=== PATIENT | male | born 1980 | race Caucasian/White ===

== ENCOUNTER → 2017-08-07 | Outpatient (REF) | payer OTHER ==
[2017-08-07 19:51] LABS: BASO # 0.1 10^3/uL (0.0-0.2); BASO % 0.5 % (0.0-1.0); EOS # 0.3 10^3/uL (0.0-0.50); EOS % 2.6 % (0.0-3.0); HEMATOCRIT 45.3 % (42.0-52.0); HEMOGLOBIN 14.8 g/dl (14.0-18.0); IMMATURE GRANULOCYTE % 0.4 % (0-3.0); LYMPH # 2.1 10^3/uL (1.5-4.5); LYMPH % 19.8 % (24.0-44.0); MEAN CORPUSCULAR HEMOGLOBIN 28.2 pg (27.0-33.0); MEAN CORPUSCULAR HGB CONC 32.7 g/dl (32.0-36.5); MEAN CORPUSCULAR VOLUME 86.5 fl (80.0-96.0); MONO # 0.8 10^3/uL (0.0-0.8); MONO % 7.7 % (0.0-5.0); NEUTROPHILS # 7.3 10^3/uL (1.8-7.7); PLATELET COUNT, AUTOMATED 295 10^3/uL (150-450); RED BLOOD COUNT 5.24 10^6/uL (4.30-6.10); RED CELL DISTRIBUTION WIDTH 13.4 % (11.5-14.5); WHITE BLOOD COUNT 10.6 10^3/uL (4.0-10.0)
[2017-08-07 20:30] LABS: ALBUMIN 4.1 GM/DL (3.2-5.2); ALBUMIN/GLOBULIN RATIO 1.11 (1.00-1.93); ALKALINE PHOSPHATASE 94 U/L (45-117); ALT/SGPT 86 U/L (12-78); ANION GAP 11 MEQ/L (8-16); AST/SGOT 45 U/L (7-37); BILIRUBIN,TOTAL 0.5 MG/DL (0.2-1.0); BLOOD UREA NITROGEN 15 MG/DL (7-18); CALCIUM LEVEL 9.1 MG/DL (8.5-10.1); CARBON DIOXIDE LEVEL 31 MEQ/L (21-32); CHLORIDE LEVEL 100 MEQ/L (98-107); CHOLESTEROL LEVEL 157 MG/DL (<200); CHOLESTEROL RISK RATIO 3.829 (<5); CREATININE FOR GFR 0.92 MG/DL (0.70-1.30); FREE T4 0.99 NG/DL (0.76-1.46); GLOMERULAR FILTRATION RATE > 60.0 (>60); GLUCOSE, FASTING 71 MG/DL (70-100); HDL CHOLESTEROL 41 MG/DL (>40); LDL CHOLESTEROL 78.2 MG/DL (<100); NON-HDL-C 116 MG/DL; POTASSIUM SERUM 3.8 MEQ/L (3.5-5.1); SODIUM LEVEL 142 MEQ/L (136-145); TOTAL PROTEIN 7.8 GM/DL (6.4-8.2); TRIGLYCERIDES LEVEL 189 MG/DL (<150)
== END ==
LOC: M LAB REF 19:38 → M LABDRWAD 19:38
DX: I10 Essential (primary) hypertension (principal); E03.9 Hypothyroidism, unspecified
CPT/HCPCS: 84443

== ENCOUNTER 2017-12-04 19:03 | Emergency (ER) | payer OTHER ==
[2017-12-04] MEDS: BACTRIM 160MG/800MG DS TAB PO (22:48)
== END 2017-12-04 23:00 | disposition home or self-care (01) ==
LOC: M ED 19:03
DX: K65.1 Peritoneal abscess (principal); E03.9 Hypothyroidism, unspecified; Z87.891 Personal history of nicotine dependence; Z91.040 Latex allergy status; Z88.0 Allergy status to penicillin; Z79.899 Other long term (current) drug therapy; Z79.890 Hormone replacement therapy
CPT/HCPCS: 99283

== ENCOUNTER 2019-12-26 08:09 | Emergency (ER) | payer OTHER ==
[~2019-12-26] VITALS: Ht 193 cm; Wt 172.7 kg
[~2019-12-26 08:09] MED LIST: BACT800T5 PO; CLON0.2T; LEVO150T7; blood pressure PO
[2019-12-26] MEDS ORDERED: LISI10TA4 PO ×2 (08:29→12:07)
[2019-12-26] MEDS ORDERED: NS 1,000 ML IV ONE (08:30)
[2019-12-26 08:57] LABS: BASO % 0.3 % (0.0-1.0); EOS # 0.1 10^3/uL (0.0-0.5); EOS % 0.8 % (0.0-3.0); HEMATOCRIT 44.9 % (42.0-52.0); HEMOGLOBIN 14.3 g/dl (13.5-17.5); LYMPH # 1.5 10^3/uL (1.5-5.0); LYMPH % 12.7 % (24.0-44.0); MEAN CORPUSCULAR HEMOGLOBIN 26.9 pg (27.0-33.0); MEAN CORPUSCULAR HGB CONC 31.8 g/dl (32.0-36.5); MEAN CORPUSCULAR VOLUME 84.4 fl (80.0-96.0); MONO # 0.7 10^3/uL (0.0-0.8); MONO % 5.6 % (0.0-5.0); NEUTROPHILS # 9.4 10^3/uL (1.5-8.5); NEUTROPHILS % 80.1 % (36.0-66.0); PLATELET COUNT, AUTOMATED 287 10^3/uL (150-450); RED BLOOD COUNT 5.32 10^6/uL (4.30-6.10); WHITE BLOOD COUNT 11.7 10^3/uL (4.0-10.0)
[2019-12-26 09:24] LABS: INR 1.07; PROTHROMBIN TIME 13.6 SECONDS (11.8-14.0)
[2019-12-26 09:28] LABS: ALBUMIN 3.8 GM/DL (3.2-5.2); BILIRUBIN,DIRECT 0.2 MG/DL (0.0-0.2); BILIRUBIN,TOTAL 0.8 MG/DL (0.2-1.0); THYROID STIMULATING HORMONE 14.3 uIU/ML (0.358-3.740); THYROXINE (T4) 7.5 UG/DL (4.5-12.0); TOTAL PROTEIN 7.5 GM/DL (6.4-8.2)
--- NOTE | 2019-12-26 09:42 | REP ---
CHEST, SINGLE VIEW: There is no evidence of acute infiltrate. No pleural effusion is seen. The heart is normal in size. The mediastinal silhouette is unremarkable. The visualized osseous structures are intact. IMPRESSION: No acute pulmonary disease. Electronically Signed by Blair Ohara MD 12/26/2019 11:28 A
[2019-12-26 12:01] VITALS: BP 149/100
[2019-12-26] MEDS ORDERED: CYCL-707 PO (12:07)
--- NOTE | 2019-12-27 07:57 | ECGEPIP ---
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
== END 2019-12-26 12:20 | disposition home or self-care (01) ==
LOC: EDBD 08:09 → M ED 08:09
DX: I95.1 Orthostatic hypotension (principal); F17.200 Nicotine dependence, unspecified, uncomplicated; I10 Essential (primary) hypertension; R00.0 Tachycardia, unspecified; Z79.899 Other long term (current) drug therapy; Z88.0 Allergy status to penicillin; Z91.040 Latex allergy status

== ENCOUNTER 2019-12-31 11:15 | Emergency (ER) | payer OTHER ==
[~2019-12-31] VITALS: Ht 193 cm; Wt 172.7 kg
[~2019-12-31 11:15] MED LIST changes: +CYCL-707 PO; +LISI10TA4 PO
[2019-12-31] MEDS ORDERED: BACT800T5 PO (12:17)
[2019-12-31] MEDS ORDERED: IBUP-1022 PO (12:17)
[2019-12-31 13:15] VITALS: BP 139/79
== END 2019-12-31 13:28 | disposition home or self-care (01) ==
LOC: M ED 11:15 → EDBD 11:15 → M ED 13:28
DX: L02.214 Cutaneous abscess of groin (principal); E11.9 Type 2 diabetes mellitus without complications; I10 Essential (primary) hypertension; Z79.899 Other long term (current) drug therapy; Z87.891 Personal history of nicotine dependence; Z88.0 Allergy status to penicillin; Z91.040 Latex allergy status

== ENCOUNTER 2021-03-27 16:48 | Inpatient (IN) | payer OTHER ==
[~2021-03-27] VITALS: Ht 193 cm; Wt 227.3 kg
[~2021-03-27 16:48] MED LIST changes: +IBUP-1022 PO; +LISI10TA22 PO; -LISI10TA4 PO
[2021-03-27 21:10] LABS: HEMATOCRIT 44.1 % (42.0-52.0); HEMOGLOBIN 14.3 g/dl (13.5-17.5); MEAN CORPUSCULAR HEMOGLOBIN 29.1 pg (27.0-33.0); MEAN CORPUSCULAR HGB CONC 32.4 g/dl (32.0-36.5); MEAN CORPUSCULAR VOLUME 89.8 fl (80.0-96.0); PLATELET COUNT, AUTOMATED 268 10^3/uL (150-450); RED BLOOD COUNT 4.91 10^6/uL (4.30-6.10); WHITE BLOOD COUNT 12.3 10^3/uL (4.0-10.0)
[2021-03-27 21:51] LABS: AMPHETAMINES LEVEL URINE NEGATIVE (NEGATIVE); BARBITURATES URINE NEGATIVE (NEGATIVE); BENZODIAZEPINES URINE NEGATIVE (NEGATIVE); CANNABINOIDS URINE POSITIVE (NEGATIVE); COCAINE METABOLITE URINE NEGATIVE (NEGATIVE); METHADONE URINE NEGATIVE (NEGATIVE); OPIATES URINE NEGATIVE (NEGATIVE); PHENCYCLIDINE URINE NEGATIVE (NEGATIVE)
[2021-03-27 21:58] LABS: ACETAMINOPHEN LEVEL < 2.0 UG/ML (10.0-30.0); ALBUMIN 3.4 GM/DL (3.2-5.2); ALT/SGPT 37 U/L (12-78); BILIRUBIN,DIRECT 0.1 MG/DL (0.0-0.2); BILIRUBIN,TOTAL 0.5 MG/DL (0.2-1.0); BLOOD UREA NITROGEN 20 MG/DL (7-18); CALCIUM LEVEL 8.9 MG/DL (8.5-10.1); CARBON DIOXIDE LEVEL 29 MEQ/L (21-32); CHLORIDE LEVEL 105 MEQ/L (98-107); CREATININE FOR GFR 1.11 MG/DL (0.70-1.30); ETHYL ALCOHOL (ETHANOL) < 0.003 % (0.000-0.010); GLOMERULAR FILTRATION RATE > 60.0 (>60); GLUCOSE, FASTING 126 MG/DL (70-100); POTASSIUM SERUM 4.3 MEQ/L (3.5-5.1); SALICYLATE LEVEL < 1.7 MG/DL (5.0-30.0); SODIUM LEVEL 137 MEQ/L (136-145)
[2021-03-28] MEDS: APIXABAN 5 MG TAB (ELIQUIS) PO SCH ×3 (01:47→19:56)
[2021-03-28] MEDS ORDERED: TRAZ-189 PO (08:33)
[2021-03-28] MEDS ORDERED: LEVOTAB10 PO (08:33)
[2021-03-28] MEDS ORDERED: AMLO1TAB24 PO (08:33)
[2021-03-28] MEDS ORDERED: METF500T13 PO (08:33)
[2021-03-28] MEDS ORDERED: ARIP1TAB6 PO (08:33)
[2021-03-28] MEDS ORDERED: LEVO100T5 PO (08:33)
[2021-03-28] MEDS ORDERED: VITA100066 PO (08:33)
[2021-03-28] MEDS ORDERED: METO50TA7 PO (08:33)
[2021-03-28] MEDS ORDERED: TORS20TA2 PO (08:33)
[2021-03-28] MEDS ORDERED: ELIQ5TAB PO (08:33)
[2021-03-28] MEDS ORDERED: OMEP-218 PO (08:33)
[2021-03-28] MEDS ORDERED: MELA10CA2 PO (08:33)
[2021-03-28] MEDS ORDERED: MAGN400T2 PO (08:33)
[2021-03-28] MEDS ORDERED: traZODone 100 MG TAB PO PRN (08:50)
[2021-03-28] MEDS ORDERED: SIME80CH5 PO (10:25)
[2021-03-28] MEDS ORDERED: [UNRECOGNIZED DRUG - CODE] MT (10:25)
[2021-03-28] MEDS ORDERED: CETI-24 PO (10:25)
[2021-03-28] MEDS ORDERED: HOME MED LIST COMPLETE! XX SCH (10:30)
[2021-03-28 11:12] LABS: RSV AMPLIFICATION NEGATIVE (NEGATIVE)
[2021-03-28] MEDS ORDERED: MOM 30ML SUSPENSION UDC PO PRN (15:10)
[2021-03-28] MEDS ORDERED: ACETAMINOPHEN TAB 650MG DOSE (2X325MG) PO PRN (15:10)
[2021-03-28] MEDS ORDERED: MAALOX 30 ML SUSP *UDC PO PRN (15:10)
[2021-03-28] MEDS ORDERED: traZODone 50 MG TAB PO PRN ×2 (15:10→18:05)
--- NOTE | 2021-03-28 19:38 | ECGEPIP ---
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
[2021-03-28] MEDS: OMEPRAZOLE 20 MG CAP PO SCH (19:56)
[2021-03-28] MEDS: metFORMIN (GLUCOPHAGE) 500MG TAB PO SCH (19:57)
[2021-03-28] MEDS: METOPROLOL TARTRATE 100 MG TAB PO SCH (20:43)
[2021-03-28] MEDS: TORSEMIDE 20 MG TAB PO SCH (20:43)
[2021-03-28] MEDS ORDERED: ARIPiprazole 10 MG TAB PO SCH (21:00)
[2021-03-29] MEDS ORDERED: LEVOTHYROXINE 100MCG TABLET (0.1MG) PO SCH ×2 (06:00)
[2021-03-29 06:20] VITALS: BP 156/102
[2021-03-29 09:00] VITALS: BP 130/77
[2021-03-29] MEDS: METOPROLOL TARTRATE 100 MG TAB PO SCH (09:00)
[2021-03-29] MEDS ORDERED: VITAMIN D 1,000 INTERNATIONAL UNITS TABLET PO SCH (09:00)
[2021-03-29] MEDS ORDERED: CETIRIZINE (ZyrTEC) 10 MG TAB PO SCH (09:00)
[2021-03-29] MEDS: metFORMIN (GLUCOPHAGE) 500MG TAB PO SCH (09:51)
[2021-03-29] MEDS: APIXABAN 5 MG TAB (ELIQUIS) PO SCH (09:51)
[2021-03-29] MEDS: TORSEMIDE 20 MG TAB PO SCH (09:51)
[2021-03-29] MEDS: OMEPRAZOLE 20 MG CAP PO SCH (09:51)
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
[2021-03-29] MEDS ORDERED: NICO14DI6 TOP (13:22)
--- NOTE | 2021-03-29 13:23 | MHDSPDOC ---
[facility] Discharge Summary Discharge Summary DATE OF ADMISSION: Mar 28, 2021 at 15:08 DATE OF DISCHARGE: Mar 29, 2021 at 12:48 Discharge diagnoses: Unspecified depressive disorder Adjustment disorder Cannabis use disorder Tobacco use disorder Homelessness Multiple medical comorbidities, continued on home medications Reason for admission:Patient is a 40 -year-old , male, who was recently discharged 2 days ago from [facility] in [place], was treated with Abilify (5 mg x 2, 10 mg), trazodone 100 mg nightly for mood lability due to superficial cut reported suicide attempt, despite this states he has not been suicidal or had suicide attempts in years, reports history of anxiety, panic attacks, depression with psychotic features, was sent to [facility] but they could not make an appoint with him until today, 03/29/21 at 1 PM. Patient states she called 911 because he was homeless and has nowhere to stay so called 911 and was brought to ED 2 days ago, reports chronic passive suicidal thoughts which are vague, but clearly denies any intent or plans, states "I would never hurt myself, just did not know what t o do when I was out there homeless". Has medications with refills which was confirmed with his pharmacy, states he does not want to remain on a voluntary admission status. He is agreeable to discharge today to [facility] which he plans to go to, also plans to follow-up with outpatient providers Vital signs: See below Consultants involved: See medical H&P by hospitalist Treatment and progress on the unit: Patient was admitted to the [facility] 9.39 legal status and was afforded the following treatment modalities: 1. Individual therapy 2. Group therapy 3. Medication management 4. Milieu therapy 5. Safe environment Hospital course: Patient was admitted to the [facility] on a 9.39 legal status. Was medically cleared prior to coming up to the [facility]. TSH was elevated at 10,000 in the ED, patient was started on home medications for hypertension, hypothyroidism, patient found medications beneficial and tolerated them well. Was evaluated for medical conditions, denied any acute physical complaints. Patient was calm, denied any psychotic symptoms or mood symptoms, was goal oriented and want to go to [facility] to find housing which was the precipitating factor for his worsening mood, denies mood, anxiety and intrusive thoughts. Education provided regarding cannabis use and risk for anxiety, depression, psychotic symptoms, effects and overall health given medical conditions. Today patient denied depression, anxiety, insomnia, suicidal or homicidal ideations intent or plan, hallucinations, delusions. Patient was discharged to [facility] with follow-up. Patient felt safe for discharge. Was offered continued stay on voluntary admission but refused. Discharge assessment: On today's interview patient is alert and oriented, dressed appropriately. Hygiene and grooming is well-kept. Smiles on approach and is pleasant and engaged on interview. Denies depression and anxiety. Denies suicidal homicidal ideation, intent or planning. Denies and is not observed with gabrielle or psychotic symptoms of delusions, hallucinations, bizarre thinking, obsessions, paranoia, ruminations, illogical thoughts, flight of ideas or having poor insight or judgment. Patient has normal mentation, declines further hospitalization of voluntary status and meets criteria for discharge today, patient encouraged to return the hospital if symptoms worsen or change and encouraged to call unit if he feels he has questions needed to be answered or help with medications or care. Mental status: General Appearance: well groomed Build: overweight Demeanor: average Eye Contact: average Activity: average Behavior: cooperative Speech: clear, spontaneous, normal volume Mood: euthymic Mood "good" Affect: full, appropriate, congruent Thought Process: logical/linear Thought Content (Delusions): none reported Thought Content (Other): Denies suicidal ideation, intent or plan Thought Content (Aggressive): Denies homicidal ideation, intent or plan Perception (Hallucinations): none reported, no hallucinations or paranoia Perception (Other): none reported Cognition (Impairment of): none reported Cognition(Intelligence Est.): average Oriented: Awake, Alert, Oriented times three Insight: good Judgment: Good Psychosis: Denies Medications on discharge: -see medication reconciliation, has fill of Abilify 5 x 2 mg nightly and is aware that is available at the pharmacy was confirmed with pharmacy: CSSRS on discharge: Wish to be : No nonspecific active suicidal thoughts: No lifetime attempts: at least 3 interrupted attempts: 0 aborted attempts: 0 preparatory acts or behavior: None Taking into consideration safety state, status, modifiable, non-modifiable risk factors patient is at low risk on discharge for suicide according to [facility] suicide evaluation. PLAN/FOLLOWUP ARRANGEMENTS: Follow Up Care Education Label * Medical * Medical Follow Up [facility] * Established With This Provider No * Therapist * Date Apr 18, 2021 * Time 10:00 * Address of Clinic or Practice [address] [place] [address] * Follow Up Care Education Label * Mental Health Appt 1 * Established With This Provider Yes * Therapist GABRIELA * Date Apr 01, 2021 * Time 10:00 * Address of Clinic or Practice [address] [place] [address] * Follow Up Care Education Label * Mental Health Appt 2 * Established With This Provider Yes * Therapist PAIGE * Date Apr 25, 2021 * Time 14:00 * Address of Clinic or Practice [address] [place] [address] * The amount of time spent in the coordination of care for this patient was approximately 40 minutes. ETOH/Disorder Med Rx ETOH/DRUG DISORDER RX: Offrd @ d/c & pt refused Vital Signs/I&Os Vital Signs Date Time Temp Pulse Resp B/P (MAP) Pulse Ox O2 Delivery O2 Flow Rate FiO2 03/29/21 09:00 57 130/77 03/29/21 06:20 97.6 18 100 Room Air Medications Scheduled Amlodipine Besylate (Amlodipine Besylate) 5 Mg Tablet, 5 MG PO DAILY, (Reported) Apixaban (Eliquis) 5 Mg Tablet, 5 MG PO BID, (Reported) Cetirizine HCl (Cetirizine HCl) 10 Mg Tablet, 10 MG PO DAILY, (Reported) Cholecalciferol (Vitamin D3) (Vitamin D3) 25 Mcg Tablet, 50 MCG PO DAILY, (Reported) Levothyroxine Sodium (Levothyroxine Sodium) 100 Mcg Tablet, 200 MCG PO DAILY, (Reported) Lisinopril (Lisinopril) 10 Mg Tablet, 10 MG PO DAILY, (Reported) Magnesium Oxide (Magnesium Oxide) 400 Mg Tablet, 400 MG PO BID, (Reported) Metformin HCl (Metformin HCl) 500 Mg Tablet, 500 MG PO BID, (Reported) Metoprolol Tartrate (Metoprolol Tartrate) 50 Mg Tablet, 100 MG PO BID, (Reported) Nicotine (Nicotine Patch) 14 Mg Patch.td24, 1 PATCH TOP DAILY for smoking cessation for 28 Days, #28 Omeprazole (Omeprazole) 20 Mg Capsule.dr, 40 MG PO DAILY, (Reported) Torsemide (Torsemide) 20 Mg Tablet, 20 MG PO BID, (Reported) Scheduled PRN Melatonin (Melatonin) 10 Mg Capsule, 20 MG PO QHS PRN for INSOMNIA, (Reported) Nicotine Polacrilex (Nicotine Lozenge) 4 Mg Lozenge, 4 MG MT Q4H PRN for SMOKING CESSATION, (Reported) Simethicone (Simethicone) 80 Mg Tab.chew, 80 MG PO QID PRN for GAS PAIN, (Reported) Trazodone HCl (Trazodone HCl) 100 Mg Tablet, 100 MG PO QHS PRN for INSOMNIA, (Reported) Allergies Coded Allergies: Penicillins (Verified Allergy, Unknown, hives, tongue swelling, 12/26/19) latex (Verified Allergy, Unknown, hives, 12/26/19) MAIRA G NEELY MD Mar 29, 2021 13:23
[2021-03-29] MEDS ORDERED: ABIL10TA9 PO (13:39)
== END 2021-03-29 12:48 | disposition home or self-care (01) | DRG 754 ==
LOC: M ED 16:48 → M ED INP 03-28 15:08 → M PSY 03-28 16:16
PROVIDERS: ADMIT Student in an Organized Health Care Education/Training Program; ATTEND Student in an Organized Health Care Education/Training Program
DX: F43.21 Adjustment disorder with depressed mood (principal); F17.200 Nicotine dependence, unspecified, uncomplicated; F12.90 Cannabis use, unspecified, uncomplicated; Z79.899 Other long term (current) drug therapy; Z88.0 Allergy status to penicillin; Z91.040 Latex allergy status

== ENCOUNTER 2021-03-29 14:18 | Inpatient (IN) | payer OTHER ==
[~2021-03-29] VITALS: Ht 193 cm; Wt 233.5 kg
[2021-03-29] MEDS: NICOTINE 21MG/24HR 1 EA TRANSDERMAL TD SCH (09:00)
[~2021-03-29 14:18] MED LIST changes: +ABIL10TA9 PO; +AMLO1TAB24 PO; +ARIP1TAB6 PO; +CETI-24 PO; +ELIQ5TAB PO; +LEVO100T5 PO; +LEVOTAB10 PO; +MAGN400T2 PO; +MELA10CA2 PO; +METF500T13 PO; +METO50TA7 PO; +NICO14DI6 TOP; +OMEP-218 PO; +SIME80CH5 PO; +TORS20TA2 PO; +TRAZ-189 PO; +VITA100066 PO; +[UNRECOGNIZED DRUG - CODE] MT
[2021-03-29] MEDS ORDERED: HOME MED LIST COMPLETE! XX SCH (15:25)
[2021-03-29 15:50] LABS: RSV AMPLIFICATION NEGATIVE (NEGATIVE)
[2021-03-29] MEDS ORDERED: MAALOX 30 ML SUSP *UDC PO PRN (17:35)
[2021-03-29] MEDS ORDERED: MOM 30ML SUSPENSION UDC PO PRN (17:35)
[2021-03-29 19:06] VITALS: BP 105/67
[2021-03-29 21:56] VITALS: BP 135/93
[2021-03-30] MEDS ORDERED: SIMETHICONE 80MG CHEW TAB PO PRN (08:40)
[2021-03-30] MEDS: NICOTINE 21MG/24HR 1 EA TRANSDERMAL TD SCH (08:59)
[2021-03-30] MEDS ORDERED: NICOTINE 14 MG/24 HR TRANSDERMAL TOP SCH (09:00)
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
[2021-03-30] MEDS: TORSEMIDE 20 MG TAB PO SCH ×2 (10:45→17:07)
[2021-03-30] MEDS: VITAMIN D 1,000 INTERNATIONAL UNITS TABLET PO SCH (10:46)
[2021-03-30] MEDS: CETIRIZINE (ZyrTEC) 10 MG TAB PO SCH (10:47)
[2021-03-30] MEDS: APIXABAN 5 MG TAB (ELIQUIS) PO SCH ×2 (10:47→23:01)
[2021-03-30] MEDS: metFORMIN (GLUCOPHAGE) 500MG TAB PO SCH ×2 (10:47→17:08)
[2021-03-30] MEDS: OMEPRAZOLE 20 MG CAP PO SCH (10:47)
[2021-03-30] MEDS: MAGNESIUM OXIDE 400MG TAB (MAG-OX) PO SCH ×2 (10:47→23:08)
[2021-03-30] MEDS: ARIPiprazole 10 MG TAB PO SCH (10:47)
[2021-03-30] MEDS: LEVOTHYROXINE 100MCG TABLET (0.1MG) PO SCH (10:48)
[2021-03-30] MEDS: METOPROLOL TART 50 MG TAB PO SCH ×2 (10:57→23:07)
[2021-03-30] MEDS: amLODIPine 5 MG TAB PO SCH (10:58)
--- NOTE | 2021-03-30 16:12 | HPEPDOC ---
General Date of Admission Mar 29, 2021 at 17:34 Date of Service: Mar 30, 2021 Chief Complaint The patient is a 40-year-old male admitted with a reason for visit of Unspecified Depressive Disorder. History of Present Illness 40-year-old male with past medical history of hypertension, hypothyroid, diabetes, depression, adjustment disorder, homelessness, admitted to inpatient mental health unit for depression. He is being examined here today for medical history and physical. He was admitted to inpatient mental health unit on 03/29 and discharged on 03/29 to [facility] for emergency housing however he did not have any identification papers and proof of income so he could not be given in emergency housing and was sent back to the emergency room and now readmitted in inpatient mental health unit. He just moved from [place] to [place] and does not have any housing at present. Patient reports that he needs more pillows to sleep. Now with one pillow his head pain is so low that he feels like he cannot breathe he wakes up during the night suffocating and coughing. At home he always sleeps with 3 pillows with his head up. Does not offer any other complaints. Home Medications Scheduled Amlodipine Besylate (Amlodipine Besylate) 5 Mg Tablet, 5 MG PO DAILY, (Reported) Apixaban (Eliquis) 5 Mg Tablet, 5 MG PO BID, (Reported) Aripiprazole (Abilify) 10 Mg Tablet, 1 TAB PO DAILY for mood Cetirizine HCl (Cetirizine HCl) 10 Mg Tablet, 10 MG PO DAILY, (Reported) Cholecalciferol (Vitamin D3) (Vitamin D3) 25 Mcg Tablet, 50 MCG PO DAILY, (Reported) Levothyroxine Sodium (Levothyroxine Sodium) 100 Mcg Tablet, 200 MCG PO DAILY, (Reported) Lisinopril (Lisinopril) 10 Mg Tablet, 10 MG PO DAILY, (Reported) Magnesium Oxide (Magnesium Oxide) 400 Mg Tablet, 400 MG PO BID, (Reported) Metformin HCl (Metformin HCl) 500 Mg Tablet, 500 MG PO BID, (Reported) Metoprolol Tartrate (Metoprolol Tartrate) 50 Mg Tablet, 100 MG PO BID, (Reported) Nicotine (Nicotine Patch) 14 Mg Patch.td24, 1 PATCH TOP DAILY for smoking cessation Omeprazole (Omeprazole) 20 Mg Capsule.dr, 40 MG PO DAILY, (Reported) Torsemide (Torsemide) 20 Mg Tablet, 20 MG PO BID, (Reported) Scheduled PRN Melatonin (Melatonin) 10 Mg Capsule, 20 MG PO QHS PRN for INSOMNIA, (Reported) Nicotine Polacrilex (Nicotine Lozenge) 4 Mg Lozenge, 4 MG MT Q4H PRN for SMOKING CESSATION, (Reported) Simethicone (Simethicone) 80 Mg Tab.chew, 80 MG PO QID PRN for GAS PAIN, (Reported) Trazodone HCl (Trazodone HCl) 100 Mg Tablet, 100 MG PO QHS PRN for INSOMNIA, (Reported) Allergies Coded Allergies: Penicillins (Verified Allergy, Unknown, hives, tongue swelling, 12/26/19) latex (Verified Allergy, Unknown, hives, 12/26/19) Past Medical History Medical History Hypertension Hypothyroid Diabetes A. fib Morbid obesity with a BMI of 61.8 Likely ANNE Major depressive disorder with multiple suicide attempts in the past Adjustment disorder Cannabis use disorder Tobacco use disorder Homelessness has been living in a tent in [place] Surgical History Right thumb surgery Family History Significant Family History: Hypertension Social History * Smoker: former Smoker Alcohol: sober (used to be an alcoholic sobedr for 5 years. ) A-FIB/CHADSVASC A-FIB History Current/History of A-Fib/PAF?: Yes Current PO Anticoag Therapy: Yes Review of Systems Constitutional: Denies: Chills, Fever, Night Sweats Eyes: Denies: Pain, Vision change ENT: Denies: Head Aches, Ear Pain, Dysphagia Skin: Denies: Rash, Lesions, Breakdown Pulmonary: Reports: Other Symptoms (Frequently waking up during sleeping at night coughing and sensation of choking); Denies: Dyspnea, Cough Cardiovascular: Denies: Chest Pain, Palpitations, Orthopnea, Paroxysmal Noc. Dyspnea, Lt Headedness Gastrointestinal: Denies: Nausea, Vomiting, Abdominal Pain, Diarrhea Genitourinary: Denies: Dysuria, Frequency, Incontinence, Retention Hematologic: Denies: Bruising, Bleeding Excessively Musculoskeletal: Reports: Back Pain; Denies: Neck Pain, Joint Pain, Muscle Pain, Spasms Physical Examination General Exam: Positive: Alert, Cooperative, No Acute Distress Eye Exam: Positive: PERRLA, Conjunctiva & lids normal, EOMI; Negative: Sclera icteric ENT Exam: Positive: Atraumatic, Mucous membr. moist/pink, Pharynx Normal Neck Exam: Positive: Supple; Negative: JVD, thyromegaly Chest Exam: Positive: Clear to auscultation, Normal air movement Heart Exam: Positive: Rate Normal, Regular Rhythm, Normal S1, Normal S2; Negative: Murmurs, Rubs Abdomen Exam: Positive: Normal bowel sounds, Soft, Other (Severely obese); Negative: Tenderness Extremity Exam: Negative: Clubbing, Cyanosis, Edema Skin Exam: Positive: Nl turgor and temperature; Negative: Breakdown, Lesion Neuro Exam: Positive: Normal Speech, Strength at 5/5 X4 ext, Normal Tone Psych Exam: Positive: Memory Intact, Oriented x 3 Vital Signs Vital Signs Date Time Temp Pulse Resp B/P (MAP) Pulse Ox O2 Delivery O2 Flow Rate FiO2 03/30/21 10:58 152/90 03/30/21 10:58 60 03/29/21 21:56 96.7 20 97 Room Air Laboratory Data Labs 24H Laboratory Tests 2 03/29/21 14:53: Coronavirus (COVID-19)(PCR) NEGATIVE, Influenza Type A (RT-PCR) NEGATIVE, Influenza Type B (RT-PCR) NEGATIVE, Respiratory Syncytial Virus (PCR) NEGATIVE Assessment/Plan 40-year-old male with past medical history of hypertension, hypothyroid, diabetes, depression, adjustment disorder, homelessness, admitted to inpatient mental health unit for depression. He is being examined here today for medical history and physical. Depression As per psych Homelessness PFS and case management are on board Morbid obesity. Likely has ANNE Patient should get a referral for sleep study from his primary care provider A. fib Rate controlled Continue metoprolol and Eliquis Hypertension Continue metoprolol, amlodipine, lisinopril Diabetes Continue Metformin Intermittent leg edema Continue torsemide GERD Continue PPI Plan / VTE VTE Prophylaxis Ordered?: No (Fully ambulatory) Olimpia Yoder MD Mar 30, 2021 13:52
[2021-03-30 19:06] VITALS: BP 110/62
[2021-03-31] MEDS: LEVOTHYROXINE 100MCG TABLET (0.1MG) PO SCH (05:43)
[2021-03-31 06:32] VITALS: BP 131/86
[2021-03-31] MEDS: VITAMIN D 1,000 INTERNATIONAL UNITS TABLET PO SCH (09:19)
[2021-03-31] MEDS: APIXABAN 5 MG TAB (ELIQUIS) PO SCH ×2 (09:19→23:06)
[2021-03-31] MEDS: TORSEMIDE 20 MG TAB PO SCH ×2 (09:19→16:26)
[2021-03-31] MEDS: CETIRIZINE (ZyrTEC) 10 MG TAB PO SCH (09:19)
[2021-03-31] MEDS: METOPROLOL TART 50 MG TAB PO SCH ×2 (09:20→23:08)
[2021-03-31] MEDS: ARIPiprazole 10 MG TAB PO SCH (09:20)
[2021-03-31] MEDS: OMEPRAZOLE 20 MG CAP PO SCH (09:20)
[2021-03-31] MEDS: amLODIPine 5 MG TAB PO SCH (09:21)
[2021-03-31] MEDS: MAGNESIUM OXIDE 400MG TAB (MAG-OX) PO SCH ×2 (09:21→23:07)
[2021-03-31] MEDS: metFORMIN (GLUCOPHAGE) 500MG TAB PO SCH ×2 (09:23→17:31)
--- NOTE | 2021-03-31 11:24 | MHIPNPDOC ---
[facility] Progress Note Progress Note DATE OF SERVICE: 03/31/21 HISTORY: Patient is a 40 -year-old , male, who was readmitted after coming back from [facility] who could not house him, as per the patient he did not have any legal papers . During my evaluation in the ER and on the unit patient seems to be severely depressed he feels hopeless and helpless. He reports "I do not see any exit". Patient was admitted to [facility] for attempting suicide by cutting his hand about a week ago. Though patient denies any suicidal thoughts he reports he is severely depressed, feels hopeless and also complains of anxiety. Patient also has possibility cannabis use disorder. Patient has multiple psychiatric hospitalizations has been diagnosed with depressive disorder and has history of multiple suicide attempts. Patient became noncompliant with his medication since a week. As per his statement he is on Abilify currently which helps him. ED report : Pt came back after discharge due to [facility] being unable to house him without his identification and proof of income. He reports these things are probably in his tent that he has set up in [place]. Pt reports "severe anxiety with tremors" and depression feeling hopeless * Pt denies current SI but reports a Hx of SI and attempts. Pt reports increased depression that he does not feel improved prior to discharge. Pt also stated he is suffering from anxiety with physical symptoms. Pt states he was sent to [facility] however does not have any of his identification or proof of income so they were unable to provide housing. Pt is unable to contract for safety or provide a safe discharge plan. Dr. Bragg conducted a face to face evaluation. He feels that Pt does continue to meet criteria for re-admission based on severe depression and previous attempts coupled with the inability to provide a safe discharge.. Interval report: He reports that he slept well, I am happy I am back on my med ications, still preoccupied with his homelessness. MENTAL STATUS EXAMINATION: Patient is a 40year old male, who is morbidly obese Speech: Is rate rhythm and volume are Language skills are good Thought processes including: Linear goal-directed Thought content: Denied any suicidal homicidal ideas, no delusions Judgment: Fair Insight: [Fair Orientation: Oriented to time place and person Recent and remote memory: Good Attention span and concentration: Good Language: Good Fund of knowledge: Mood: Depressed. Affect: Mood congruent DIAGNOSES: 1. Major depressive disorder ASSESSMENT: He is less depressed, his main stress was homelessness. MANAGEMENT PLAN: We will come out with his disposition plan after consulting social service. TIME SPENT: 25 minutes. Vital Signs Vital Signs Date Time Temp Pulse Resp B/P (MAP) Pulse Ox O2 Delivery O2 Flow Rate FiO2 03/31/21 09:21 60 131/86 03/31/21 06:32 98.3 14 95 Room Air Current Medications Current Medications Medications (Trade) Dose Ordered Sig/Louis Route PRN Reason Start Time Stop Time Status Last Admin Dose Admin Acetaminophen (Tylenol Tab) 650 mg Q6HP PRN PO HEADACHE or MILD DISCOMFORT 03/29/21 17:35 Al Hydrox/Mg Hydrox/Simethicone (Mylanta) 30 ml Q4HP PRN PO HEARTBURN/INDIGESTION 03/29/21 17:35 Amlodipine Besylate (Norvasc) 5 mg DAILY PO 03/30/21 09:00 03/31/21 09:21 Apixaban (Eliquis) 5 mg BID PO 03/30/21 09:00 03/31/21 09:19 Aripiprazole (AbiLIFY) 10 mg DAILY PO 03/30/21 09:00 03/31/21 09:20 Cetirizine HCl (ZyrTEC) 10 mg DAILY PO 03/30/21 09:00 03/31/21 09:19 Home Med (Home Med List Complete!) ASDIRECTED XX 03/29/21 15:25 03/29/21 15:24 DC Levothyroxine Sodium (Synthroid) 200 mcg DAILY@0600 PO 03/30/21 06:00 03/31/21 05:43 Lisinopril (Prinivil) 10 mg DAILY PO 03/30/21 09:00 03/31/21 09:19 Magnesium Hydroxide (Milk Of Magnesia) 30 ml DAILYPRN PRN PO CONSTIPATION 03/29/21 17:35 Magnesium Oxide (Mag-Ox) 400 mg BID PO 03/30/21 09:00 03/31/21 09:21 Metformin HCl (Glucophage) 500 mg BID@0800,1800 PO 03/30/21 08:00 03/31/21 09:23 Metoprolol Tartrate (Lopressor) 100 mg BID PO 03/30/21 09:00 03/31/21 09:20 Nicotine (Nicoderm Cq 14mg) 1 patch DAILY TOP 03/30/21 09:00 03/30/21 09:03 DC Nicotine (Nicoderm Cq 21mg) 1 patch DAILY TD 03/29/21 09:00 03/30/21 10:49 DC Omeprazole (PriLOSEC) 40 mg DAILY PO 03/30/21 09:00 03/31/21 09:20 Simethicone (Mylicon) 80 mg QID PRN PO GAS PAIN 03/30/21 08:40 Torsemide (Demadex) 20 mg BID@0900,1700 PO 03/30/21 09:00 03/31/21 09:19 Trazodone HCl (Desyrel) 50 mg QHSP PRN PO INSOMNIA 03/29/21 17:35 Trazodone HCl (Desyrel) 100 mg QHS PRN PO INSOMNIA 03/30/21 08:40 Vitamin D (Vitamin D) 2,000 units DAILY PO 03/30/21 09:00 03/31/21 09:19 Allergies Coded Allergies: Penicillins (Verified Allergy, Unknown, hives, tongue swelling, 12/26/19) latex (Verified Allergy, Unknown, hives, 12/26/19) CORTNEY GUTIERREZ MD Mar 31, 2021 11:24
[2021-03-31 22:00] VITALS: BP 135/82
[2021-03-31] MEDS: ACETAMINOPHEN TAB 650MG DOSE (2X325MG) PO PRN (23:06)
[2021-03-31] MEDS: traZODone 50 MG TAB PO PRN (23:06)
[2021-04-01] MEDS: LEVOTHYROXINE 100MCG TABLET (0.1MG) PO SCH (05:30)
[2021-04-01 06:36] VITALS: BP 137/90
[2021-04-01] MEDS: MAGNESIUM OXIDE 400MG TAB (MAG-OX) PO SCH ×2 (08:15→20:26)
[2021-04-01] MEDS: OMEPRAZOLE 20 MG CAP PO SCH (08:15)
[2021-04-01] MEDS: ARIPiprazole 10 MG TAB PO SCH (08:15)
[2021-04-01] MEDS: metFORMIN (GLUCOPHAGE) 500MG TAB PO SCH ×2 (08:16→17:34)
[2021-04-01] MEDS: TORSEMIDE 20 MG TAB PO SCH ×2 (08:17→16:15)
[2021-04-01] MEDS: VITAMIN D 1,000 INTERNATIONAL UNITS TABLET PO SCH (08:18)
[2021-04-01] MEDS: METOPROLOL TART 50 MG TAB PO SCH ×2 (08:18→20:26)
[2021-04-01] MEDS: APIXABAN 5 MG TAB (ELIQUIS) PO SCH ×2 (08:18→20:26)
[2021-04-01] MEDS: CETIRIZINE (ZyrTEC) 10 MG TAB PO SCH (08:18)
[2021-04-01] MEDS: ACETAMINOPHEN TAB 650MG DOSE (2X325MG) PO PRN (08:20)
[2021-04-01] MEDS: amLODIPine 5 MG TAB PO SCH (08:20)
--- NOTE | 2021-04-01 13:18 | MHIPNPDOC ---
[facility] Progress Note Progress Note DATE OF SERVICE: 04/01/21 HISTORY: Patient is a 40 -year-old , male, who was readmitted after coming back from [facility] who could not house him, as per the patient he did not have any legal papers . During my evaluation in the ER and on the unit patient seems to be severely depressed he feels hopeless and helpless. He reports "I do not see any exit". Patient was admitted to [facility] for attempting suicide by cutting his hand about a week ago. Though patient denies any suicidal thoughts he reports he is severely depressed, feels hopeless and also complains of anxiety. Patient also has possibility cannabis use disorder. Patient has multiple psychiatric hospitalizations has been diagnosed with depressive disorder and has history of multiple suicide attempts. Patient became noncompliant with his medication since a week. As per his statement he is on Abilify currently which helps him. ED report : Pt came back after discharge due to [facility] being unable to house him without his identification and proof of income. He reports these things are probably in his tent that he has set up in [place]. Pt reports "severe anxiety with tremors" and depression feeling hopeless * Pt denies current SI but reports a Hx of SI and attempts. Pt reports increased depression that he does not feel improved prior to discharge. Pt also stated he is suffering from anxiety with physical symptoms. Pt states he was sent to [facility] however does not have any of his identification or proof of income so they were unable to provide housing. Pt is unable to contract for safety or provide a safe discharge plan. Dr. Bragg conducted a face to face evaluation. He feels that Pt does continue to meet criteria for re-admission based on severe depression and previous attempts coupled with the inability to provide a safe discharge.. Interval report: Patient wants to go to some jail, wants to make some phone calls, denies any suicidal thoughts, or any homicidal thoughts. He reports he has been feeling better, does not feel hopeless However his personal hygiene is poor, needs psychoeducation. MENTAL STATUS EXAMINATION: Patient is a 40year old male, who is morbidly obese Speech: Is rate rhythm and volume are Language skills are good Thought processes including: Linear goal-directed Thought content: Denied any suicidal homicidal ideas, no delusions Judgment: Fair Insight: [Fair Orientation: Oriented to time place and person Recent and remote memory: Good Attention span and concentration: Good Language: Good Fund of knowledge: Mood: Depressed. Affect: Mood congruent DIAGNOSES: 1. Major depressive disorder ASSESSMENT: He is less depressed, his main stress was homelessness. Patient wants to call some shelters. Does not have any suicidal homicidal ideas, not hopeless. MANAGEMENT PLAN: We will come out with his disposition plan after consulting social service. TIME SPENT: 25 minutes. Vital Signs Vital Signs Date Time Temp Pulse Resp B/P (MAP) Pulse Ox O2 Delivery O2 Flow Rate FiO2 04/01/21 08:20 84 136/82 04/01/21 06:36 96.8 18 96 Room Air Current Medications Current Medications Medications (Trade) Dose Ordered Sig/Louis Route PRN Reason Start Time Stop Time Status Last Admin Dose Admin Acetaminophen (Tylenol Tab) 650 mg Q6HP PRN PO HEADACHE or MILD DISCOMFORT 03/29/21 17:35 04/01/21 08:20 Al Hydrox/Mg Hydrox/Simethicone (Mylanta) 30 ml Q4HP PRN PO HEARTBURN/INDIGESTION 03/29/21 17:35 Amlodipine Besylate (Norvasc) 5 mg DAILY PO 03/30/21 09:00 04/01/21 08:20 Apixaban (Eliquis) 5 mg BID PO 03/30/21 09:00 04/01/21 08:18 Aripiprazole (AbiLIFY) 10 mg DAILY PO 03/30/21 09:00 04/01/21 08:15 Cetirizine HCl (ZyrTEC) 10 mg DAILY PO 03/30/21 09:00 04/01/21 08:18 Home Med (Home Med List Complete!) ASDIRECTED XX 03/29/21 15:25 03/29/21 15:24 DC Levothyroxine Sodium (Synthroid) 200 mcg DAILY@0600 PO 03/30/21 06:00 04/01/21 05:30 Lisinopril (Prinivil) 10 mg DAILY PO 03/30/21 09:00 04/01/21 08:17 Magnesium Hydroxide (Milk Of Magnesia) 30 ml DAILYPRN PRN PO CONSTIPATION 03/29/21 17:35 Magnesium Oxide (Mag-Ox) 400 mg BID PO 03/30/21 09:00 04/01/21 08:15 Metformin HCl (Glucophage) 500 mg BID@0800,1800 PO 03/30/21 08:00 04/01/21 08:16 Metoprolol Tartrate (Lopressor) 100 mg BID PO 03/30/21 09:00 04/01/21 08:18 Nicotine (Nicoderm Cq 14mg) 1 patch DAILY TOP 03/30/21 09:00 03/30/21 09:03 DC Nicotine (Nicoderm Cq 21mg) 1 patch DAILY TD 03/29/21 09:00 03/30/21 10:49 DC Omeprazole (PriLOSEC) 40 mg DAILY PO 03/30/21 09:00 04/01/21 08:15 Simethicone (Mylicon) 80 mg QID PRN PO GAS PAIN 03/30/21 08:40 Torsemide (Demadex) 20 mg BID@0900,1700 PO 03/30/21 09:00 04/01/21 08:17 Trazodone HCl (Desyrel) 50 mg QHSP PRN PO INSOMNIA 03/29/21 17:35 03/31/21 23:06 Trazodone HCl (Desyrel) 100 mg QHS PRN PO INSOMNIA 03/30/21 08:40 Vitamin D (Vitamin D) 2,000 units DAILY PO 03/30/21 09:00 04/01/21 08:18 Allergies Coded Allergies: Penicillins (Verified Allergy, Unknown, hives, tongue swelling, 12/26/19) latex (Verified Allergy, Unknown, hives, 12/26/19) CORTNEY GUTIERREZ MD Apr 01, 2021 13:18
[2021-04-01 16:42] VITALS: BP 121/83
[2021-04-01] MEDS: traZODone 50 MG TAB PO PRN (20:26)
[2021-04-02] MEDS: LEVOTHYROXINE 100MCG TABLET (0.1MG) PO SCH (05:40)
[2021-04-02 06:32] VITALS: BP 144/91
[2021-04-02] MEDS: CETIRIZINE (ZyrTEC) 10 MG TAB PO SCH (07:38)
[2021-04-02] MEDS: MAGNESIUM OXIDE 400MG TAB (MAG-OX) PO SCH ×2 (07:38→20:49)
[2021-04-02] MEDS: OMEPRAZOLE 20 MG CAP PO SCH (07:38)
[2021-04-02] MEDS: metFORMIN (GLUCOPHAGE) 500MG TAB PO SCH ×2 (07:39→17:14)
[2021-04-02] MEDS: APIXABAN 5 MG TAB (ELIQUIS) PO SCH ×2 (07:39→20:48)
[2021-04-02] MEDS: ARIPiprazole 10 MG TAB PO SCH (07:39)
[2021-04-02] MEDS: VITAMIN D 1,000 INTERNATIONAL UNITS TABLET PO SCH (07:39)
[2021-04-02] MEDS: TORSEMIDE 20 MG TAB PO SCH ×2 (07:39→17:14)
[2021-04-02] MEDS: METOPROLOL TART 50 MG TAB PO SCH ×2 (07:39→20:49)
[2021-04-02] MEDS: amLODIPine 5 MG TAB PO SCH (07:40)
--- NOTE | 2021-04-02 13:10 | MHIPNPDOC ---
[facility] Progress Note Progress Note DATE OF SERVICE: 04/02/21 HISTORY: Patient is a 40 -year-old , male, who was readmitted after coming back from [facility] who could not house him, as per the patient he did not have any legal papers . During my evaluation in the ER and on the unit patient seems to be severely depressed he feels hopeless and helpless. He reports "I do not see any exit". Patient was admitted to [facility] for attempting suicide by cutting his hand about a week ago. Though patient denies any suicidal thoughts he reports he is severely depressed, feels hopeless and also complains of anxiety. Patient also has possibility cannabis use disorder. Patient has multiple psychiatric hospitalizations has been diagnosed with depressive disorder and has history of multiple suicide attempts. Patient became noncompliant with his medication since a week. As per his statement he is on Abilify currently which helps him. ED report : Pt came back after discharge due to [facility] being unable to house him without his identification and proof of income. He reports these things are probably in his tent that he has set up in [place]. Pt reports "severe anxiety with tremors" and depression feeling hopeless. Pt denies current SI but reports a Hx of SI and attempts. Pt reports increased depression that he does not feel improved prior to discharge. Pt also stated he is suffering from anxiety with physical symptoms. Pt states he was sent to [facility] however does not have any of his identification or proof of income so they were unable to provide housing. Pt is unable to contract for safety or provide a safe discharge plan. Vitals: See below Lab Results: None MENTAL STATUS EXAMINATION: Patient is a 40year old male, who is morbidly obese admitted for suicidal ideations stemming from housing issues Speech: Is normal rate, tone and volume Language skills are intact Thought processes including: linear and goal oriented Thought content: Reports depression and anxiety. Denies suicidal/homicidal ideation, planning or intent currently. Abstract reasoning, and computation: fair Description of associations: denies, none observed Description of abnormal or psychotic thoughts: denies, none observed. Judgment: fair Insight: fair Orientation: alert and oriented to person, place, time and situation Recent and remote memory: intact Attention span and concentration: good Language: expansive Fund of knowledge: below average Mood: Depressed Mood Affect: reactive DIAGNOSES: 1. Major depressive disorder ASSESSMENT: Patient reports that he was scared and afraid because [facility] would not help him. Then became paranoid, feeling that people are after him. States that he was given two things to do to find an apartment states that the search for one made him more depressed because he cannot afford the apartments on the list. He previously was in [place] but was evicted from the apartment. He states that part of his problem is that he does not have his wallet. He believes that he left it in his tent. He states that without his wallet and benefits card he had no proof of what he had spent his money on. States this mood is the same as yesterday - sad and hopeless. MANAGEMENT PLAN: We will come out with his disposition plan after consulting social service. TIME SPENT: 25 minutes. Vital Signs Vital Signs Date Time Temp Pulse Resp B/P (MAP) Pulse Ox O2 Delivery O2 Flow Rate FiO2 04/02/21 07:39 87 144/91 04/02/21 06:32 97.5 14 96 Room Air Current Medications Current Medications Medications (Trade) Dose Ordered Sig/Louis Route PRN Reason Start Time Stop Time Status Last Admin Dose Admin Acetaminophen (Tylenol Tab) 650 mg Q6HP PRN PO HEADACHE or MILD DISCOMFORT 03/29/21 17:35 04/01/21 08:20 Al Hydrox/Mg Hydrox/Simethicone (Mylanta) 30 ml Q4HP PRN PO HEARTBURN/INDIGESTION 03/29/21 17:35 04/02/21 01:50 Amlodipine Besylate (Norvasc) 5 mg DAILY PO 03/30/21 09:00 04/02/21 07:40 Apixaban (Eliquis) 5 mg BID PO 03/30/21 09:00 04/02/21 07:39 Aripiprazole (AbiLIFY) 10 mg DAILY PO 03/30/21 09:00 04/02/21 07:39 Cetirizine HCl (ZyrTEC) 10 mg DAILY PO 03/30/21 09:00 04/02/21 07:38 Home Med (Home Med List Complete!) ASDIRECTED XX 03/29/21 15:25 03/29/21 15:24 DC Levothyroxine Sodium (Synthroid) 200 mcg DAILY@0600 PO 03/30/21 06:00 04/02/21 05:40 Lisinopril (Prinivil) 10 mg DAILY PO 03/30/21 09:00 04/02/21 07:40 Magnesium Hydroxide (Milk Of Magnesia) 30 ml DAILYPRN PRN PO CONSTIPATION 03/29/21 17:35 Magnesium Oxide (Mag-Ox) 400 mg BID PO 03/30/21 09:00 04/02/21 07:38 Metformin HCl (Glucophage) 500 mg BID@0800,1800 PO 03/30/21 08:00 04/02/21 07:39 Metoprolol Tartrate (Lopressor) 100 mg BID PO 03/30/21 09:00 04/02/21 07:39 Nicotine (Nicoderm Cq 14mg) 1 patch DAILY TOP 03/30/21 09:00 03/30/21 09:03 DC Nicotine (Nicoderm Cq 21mg) 1 patch DAILY TD 03/29/21 09:00 03/30/21 10:49 DC Omeprazole (PriLOSEC) 40 mg DAILY PO 03/30/21 09:00 04/02/21 07:38 Simethicone (Mylicon) 80 mg QID PRN PO GAS PAIN 03/30/21 08:40 Torsemide (Demadex) 20 mg BID@0900,1700 PO 03/30/21 09:00 04/02/21 07:39 Trazodone HCl (Desyrel) 50 mg QHSP PRN PO INSOMNIA 03/29/21 17:35 04/01/21 20:26 Trazodone HCl (Desyrel) 100 mg QHS PRN PO INSOMNIA 03/30/21 08:40 Vitamin D (Vitamin D) 2,000 units DAILY PO 03/30/21 09:00 04/02/21 07:39 Allergies Coded Allergies: Penicillins (Verified Allergy, Unknown, hives, tongue swelling, 12/26/19) latex (Verified Allergy, Unknown, hives, 12/26/19) VICKY GAGE NP Apr 02, 2021 08:28
[2021-04-02 16:08] VITALS: BP 141/84
[2021-04-02] MEDS: traZODone 50 MG TAB PO PRN (20:49)
[2021-04-03] MEDS: LEVOTHYROXINE 100MCG TABLET (0.1MG) PO SCH (05:23)
[2021-04-03 06:43] VITALS: BP 98/65
[2021-04-03] MEDS: METOPROLOL TART 50 MG TAB PO SCH ×2 (08:04→20:31)
[2021-04-03] MEDS: metFORMIN (GLUCOPHAGE) 500MG TAB PO SCH ×2 (08:04→17:10)
[2021-04-03] MEDS: APIXABAN 5 MG TAB (ELIQUIS) PO SCH ×2 (08:04→20:29)
[2021-04-03] MEDS: VITAMIN D 1,000 INTERNATIONAL UNITS TABLET PO SCH (08:04)
[2021-04-03] MEDS: CETIRIZINE (ZyrTEC) 10 MG TAB PO SCH (08:04)
[2021-04-03] MEDS: ARIPiprazole 10 MG TAB PO SCH (08:05)
[2021-04-03] MEDS: amLODIPine 5 MG TAB PO SCH (08:05)
[2021-04-03] MEDS: TORSEMIDE 20 MG TAB PO SCH ×2 (08:05→17:10)
[2021-04-03] MEDS: MAGNESIUM OXIDE 400MG TAB (MAG-OX) PO SCH ×2 (08:05→20:30)
[2021-04-03] MEDS: OMEPRAZOLE 20 MG CAP PO SCH (08:05)
[2021-04-03] MEDS: ACETAMINOPHEN TAB 650MG DOSE (2X325MG) PO PRN ×2 (08:08→18:00)
--- NOTE | 2021-04-03 15:28 | MHIPNPDOC ---
[facility] Progress Note Progress Note DATE OF SERVICE: 04/03/21 HISTORY: Patient is a 40 -year-old , male, who was readmitted after coming back from [facility] who could not house him, as per the patient he did not have any legal papers . During my evaluation in the ER and on the unit patient seems to be severely depressed he feels hopeless and helpless. He reports "I do not see any exit". Patient was admitted to [facility] for attempting suicide by cutting his hand about a week ago. Though patient denies any suicidal thoughts he reports he is severely depressed, feels hopeless and also complains of anxiety. Patient also has possibility cannabis use disorder. Patient has multiple psychiatric hospitalizations has been diagnosed with depressive disorder and has history of multiple suicide attempts. Patient became noncompliant with his medication since a week. As per his statement he is on Abilify currently which helps him. ED report : Pt came back after discharge due to [facility] being unable to house him without his identification and proof of income. He reports these things are probably in his tent that he has set up in [place]. Pt reports "severe anxiety with tremors" and depression feeling hopeless. Pt denies current SI but reports a Hx of SI and attempts. Pt reports increased depression that he does not feel improved prior to discharge. Pt also stated he is suffering from anxiety with physical symptoms. Pt states he was sent to [facility] however does not have any of his identification or proof of income so they were unable to provide housing. Pt is unable to contract for safety or provide a safe discharge plan. Vitals: See below Lab Results: None MENTAL STATUS EXAMINATION: Patient is a 40year old male, who is morbidly obese admitted for suicidal ideations stemming from housing issues Speech: Is normal rate, tone and volume Language skills are intact Thought processes including: linear and goal oriented Thought content: Reports depression and anxiety. Denies suicidal/homicidal ideation, planning or intent currently. Abstract reasoning, and computation: fair Description of associations: denies, none observed Description of abnormal or psychotic thoughts: denies, none observed. Judgment: fair Insight: fair Orientation: alert and oriented to person, place, time and situation Recent and remote memory: intact Attention span and concentration: good Language: expansive Fund of knowledge: below average Mood: reports less depressed Affect: constricted DIAGNOSES: 1. Major depressive disorder ASSESSMENT: States that he is calling about apartments. He reports that he has located an apartment that he can afford but needs to talk to the landlord. He is future oriented and motivated and states that he needs to get a new phone and get a new benefit card and wants to keep track of things he needs to do to obtain an apartment. States that he is taking his mediations. Feeling moderately anxious, less depressed today. Report that the medications is making him sleepy during the day. He reports less depressed today. States that if he were discharged to day and without housing, he would return to the hospital. MANAGEMENT PLAN: We will come out with his disposition plan after consulting social service. Abilify and Zyrtec switched to HS, discontinued Trazodone. TIME SPENT: 25 minutes. Vital Signs Vital Signs Date Time Temp Pulse Resp B/P (MAP) Pulse Ox O2 Delivery O2 Flow Rate FiO2 04/03/21 08:05 70 04/03/21 08:04 150/88 04/03/21 06:43 99.1 18 96 Room Air Current Medications Current Medications Medications (Trade) Dose Ordered Sig/Louis Route PRN Reason Start Time Stop Time Status Last Admin Dose Admin Acetaminophen (Tylenol Tab) 650 mg Q6HP PRN PO HEADACHE or MILD DISCOMFORT 03/29/21 17:35 04/03/21 08:08 Al Hydrox/Mg Hydrox/Simethicone (Mylanta) 30 ml Q4HP PRN PO HEARTBURN/INDIGESTION 03/29/21 17:35 04/02/21 01:50 Amlodipine Besylate (Norvasc) 5 mg DAILY PO 03/30/21 09:00 04/03/21 08:05 Apixaban (Eliquis) 5 mg BID PO 03/30/21 09:00 04/03/21 08:04 Aripiprazole (AbiLIFY) 10 mg DAILY PO 03/30/21 09:00 04/03/21 08:05 Cetirizine HCl (ZyrTEC) 10 mg DAILY PO 03/30/21 09:00 04/03/21 08:04 Home Med (Home Med List Complete!) ASDIRECTED XX 03/29/21 15:25 03/29/21 15:24 DC Levothyroxine Sodium (Synthroid) 200 mcg DAILY@0600 PO 03/30/21 06:00 04/03/21 05:23 Lisinopril (Prinivil) 10 mg DAILY PO 03/30/21 09:00 04/03/21 08:05 Magnesium Hydroxide (Milk Of Magnesia) 30 ml DAILYPRN PRN PO CONSTIPATION 03/29/21 17:35 Magnesium Oxide (Mag-Ox) 400 mg BID PO 03/30/21 09:00 04/03/21 08:05 Metformin HCl (Glucophage) 500 mg BID@0800,1800 PO 03/30/21 08:00 04/03/21 08:04 Metoprolol Tartrate (Lopressor) 100 mg BID PO 03/30/21 09:00 04/03/21 08:04 Nicotine (Nicoderm Cq 14mg) 1 patch DAILY TOP 03/30/21 09:00 03/30/21 09:03 DC Nicotine (Nicoderm Cq 21mg) 1 patch DAILY TD 03/29/21 09:00 03/30/21 10:49 DC Omeprazole (PriLOSEC) 40 mg DAILY PO 03/30/21 09:00 04/03/21 08:05 Simethicone (Mylicon) 80 mg QID PRN PO GAS PAIN 03/30/21 08:40 Torsemide (Demadex) 20 mg BID@0900,1700 PO 03/30/21 09:00 04/03/21 08:05 Trazodone HCl (Desyrel) 50 mg QHSP PRN PO INSOMNIA 03/29/21 17:35 04/02/21 20:49 Trazodone HCl (Desyrel) 100 mg QHS PRN PO INSOMNIA 03/30/21 08:40 Vitamin D (Vitamin D) 2,000 units DAILY PO 03/30/21 09:00 04/03/21 08:04 Allergies Coded Allergies: Penicillins (Verified Allergy, Unknown, hives, tongue swelling, 12/26/19) latex (Verified Allergy, Unknown, hives, 12/26/19) VICKY GAGE NP Apr 03, 2021 11:37
[2021-04-03 16:10] VITALS: BP 142/84
[2021-04-03] MEDS: traZODone 100 MG TAB PO PRN (20:29)
[2021-04-04] MEDS: LEVOTHYROXINE 100MCG TABLET (0.1MG) PO SCH (06:31)
[2021-04-04 07:35] VITALS: BP 136/78
[2021-04-04] MEDS: TORSEMIDE 20 MG TAB PO SCH ×2 (09:32→17:22)
[2021-04-04] MEDS: APIXABAN 5 MG TAB (ELIQUIS) PO SCH ×2 (09:35→20:53)
[2021-04-04] MEDS: OMEPRAZOLE 20 MG CAP PO SCH (09:36)
[2021-04-04] MEDS: MAGNESIUM OXIDE 400MG TAB (MAG-OX) PO SCH ×2 (09:36→20:52)
[2021-04-04] MEDS: VITAMIN D 1,000 INTERNATIONAL UNITS TABLET PO SCH (09:37)
[2021-04-04] MEDS: METOPROLOL TART 50 MG TAB PO SCH ×2 (09:38→20:53)
[2021-04-04] MEDS: amLODIPine 5 MG TAB PO SCH (09:38)
[2021-04-04] MEDS: metFORMIN (GLUCOPHAGE) 500MG TAB PO SCH ×2 (09:39→17:22)
--- NOTE | 2021-04-04 15:28 | MHIPNPDOC ---
[facility] Progress Note Progress Note DATE OF SERVICE: 04/04/21 HISTORY: Patient is a 40 -year-old , male, who was readmitted after coming back from [facility] who could not house him, as per the patient he did not have any legal papers . During my evaluation in the ER and on the unit patient seems to be severely depressed he feels hopeless and helpless. He reports "I do not see any exit". Patient was admitted to [facility] for attempting suicide by cutting his hand about a week ago. Though patient denies any suicidal thoughts he reports he is severely depressed, feels hopeless and also complains of anxiety. Patient also has possibility cannabis use disorder. Patient has multiple psychiatric hospitalizations has been diagnosed with depressive disorder and has history of multiple suicide attempts. Patient became noncompliant with his medication since a week. As per his statement he is on Abilify currently which helps him. ED report : Pt came back after discharge due to [facility] being unable to house him without his identification and proof of income. He reports these things are probably in his tent that he has set up in [place]. Pt reports "severe anxiety with tremors" and depression feeling hopeless. Pt denies current SI but reports a Hx of SI and attempts. Pt reports increased depression that he does not feel improved prior to discharge. Pt also stated he is suffering from anxiety with physical symptoms. Pt states he was sent to [facility] however does not have any of his identification or proof of income so they were unable to provide housing. Pt is unable to contract for safety or provide a safe discharge plan. Vitals: See below Lab Results: None MENTAL STATUS EXAMINATION: Patient is a 40year old male, who is morbidly obese admitted for suicidal ideations stemming from housing issues. Unkempt, poor hygiene and grooming. Fair eye contact Speech: Is normal rate, tone and volume Language skills are intact Thought processes including: linear and goal oriented Thought content: Reports decreased depression and anxiety. Denies suicidal/homicidal ideation, planning or intent currently. Abstract reasoning, and computation: fair Description of associations: denies, none observed Description of abnormal or psychotic thoughts: denies, none observed. Judgment: fair Insight: fair Orientation: alert and oriented to person, place, time and situation Recent and remote memory: intact Attention span and concentration: good Language: expansive Fund of knowledge: below average Mood: reports less depressed Affect: constricted DIAGNOSES: 1. Major depressive disorder 2. Intellectual Disability ASSESSMENT: Reports back pain and reports depression is 2/10, rates his anxiety is 1/10. States that after numerous calls about apartments he is not making any movements towards finding a place. Reports he is not as drowsy as yesterday and feels that the medications changes was good. Wants a list of places of apartments through DSS. MANAGEMENT PLAN: We will come out with his disposition plan after consulting social service. Discharge pending. TIME SPENT: 25 minutes. Vital Signs Vital Signs Date Time Temp Pulse Resp B/P (MAP) Pulse Ox O2 Delivery O2 Flow Rate FiO2 04/04/21 07:35 97.4 75 20 136/78 (97) 95 Room Air Current Medications Current Medications Medications (Trade) Dose Ordered Sig/Louis Route PRN Reason Start Time Stop Time Status Last Admin Dose Admin Acetaminophen (Tylenol Tab) 650 mg Q6HP PRN PO HEADACHE or MILD DISCOMFORT 03/29/21 17:35 04/03/21 18:00 Al Hydrox/Mg Hydrox/Simethicone (Mylanta) 30 ml Q4HP PRN PO HEARTBURN/INDIGESTION 03/29/21 17:35 04/02/21 01:50 Amlodipine Besylate (Norvasc) 5 mg DAILY PO 03/30/21 09:00 04/03/21 08:05 Apixaban (Eliquis) 5 mg BID PO 03/30/21 09:00 04/03/21 20:29 Aripiprazole (AbiLIFY) 10 mg DAILY PO 03/30/21 09:00 04/03/21 11:37 DC 04/03/21 08:05 Aripiprazole (AbiLIFY) 10 mg QHS PO 04/04/21 21:00 Cetirizine HCl (ZyrTEC) 10 mg DAILY PO 03/30/21 09:00 04/03/21 11:37 DC 04/03/21 08:04 Cetirizine HCl (ZyrTEC) 10 mg QHS PO 04/04/21 21:00 Home Med (Home Med List Complete!) ASDIRECTED XX 03/29/21 15:25 03/29/21 15:24 DC Levothyroxine Sodium (Synthroid) 200 mcg DAILY@0600 PO 03/30/21 06:00 04/04/21 06:31 Lisinopril (Prinivil) 10 mg DAILY PO 03/30/21 09:00 04/03/21 08:05 Magnesium Hydroxide (Milk Of Magnesia) 30 ml DAILYPRN PRN PO CONSTIPATION 03/29/21 17:35 Magnesium Oxide (Mag-Ox) 400 mg BID PO 03/30/21 09:00 04/03/21 20:30 Metformin HCl (Glucophage) 500 mg BID@0800,1800 PO 03/30/21 08:00 04/03/21 17:10 Metoprolol Tartrate (Lopressor) 100 mg BID PO 03/30/21 09:00 04/03/21 20:31 Nicotine (Nicoderm Cq 14mg) 1 patch DAILY TOP 03/30/21 09:00 03/30/21 09:03 DC Nicotine (Nicoderm Cq 21mg) 1 patch DAILY TD 03/29/21 09:00 03/30/21 10:49 DC Omeprazole (PriLOSEC) 40 mg DAILY PO 03/30/21 09:00 04/03/21 08:05 Simethicone (Mylicon) 80 mg QID PRN PO GAS PAIN 03/30/21 08:40 Torsemide (Demadex) 20 mg BID@0900,1700 PO 03/30/21 09:00 04/03/21 17:10 Trazodone HCl (Desyrel) 50 mg QHSP PRN PO INSOMNIA 03/29/21 17:35 04/03/21 11:34 DC 04/02/21 20:49 Trazodone HCl (Desyrel) 100 mg QHS PRN PO INSOMNIA 03/30/21 08:40 04/03/21 20:29 Vitamin D (Vitamin D) 2,000 units DAILY PO 03/30/21 09:00 04/03/21 08:04 Allergies Coded Allergies: Penicillins (Verified Allergy, Unknown, hives, tongue swelling, 12/26/19) latex (Verified Allergy, Unknown, hives, 12/26/19) VICKY GAGE NP Apr 04, 2021 08:59
[2021-04-04] MEDS: CETIRIZINE (ZyrTEC) 10 MG TAB PO SCH (20:53)
[2021-04-04] MEDS: traZODone 100 MG TAB PO PRN (20:53)
[2021-04-04] MEDS: ARIPiprazole 10 MG TAB PO SCH (20:53)
[2021-04-04] MEDS: ACETAMINOPHEN TAB 650MG DOSE (2X325MG) PO PRN (20:54)
[2021-04-05] MEDS: LEVOTHYROXINE 100MCG TABLET (0.1MG) PO SCH (06:00)
[2021-04-05 07:11] VITALS: BP 118/72
[2021-04-05] MEDS: TORSEMIDE 20 MG TAB PO SCH ×2 (07:41→17:01)
[2021-04-05] MEDS: OMEPRAZOLE 20 MG CAP PO SCH (07:42)
[2021-04-05] MEDS: amLODIPine 5 MG TAB PO SCH (07:42)
[2021-04-05] MEDS: METOPROLOL TART 50 MG TAB PO SCH ×2 (07:42→20:42)
[2021-04-05] MEDS: VITAMIN D 1,000 INTERNATIONAL UNITS TABLET PO SCH (07:42)
[2021-04-05] MEDS: APIXABAN 5 MG TAB (ELIQUIS) PO SCH ×2 (07:43→20:40)
[2021-04-05] MEDS: MAGNESIUM OXIDE 400MG TAB (MAG-OX) PO SCH ×2 (07:43→20:40)
[2021-04-05] MEDS: metFORMIN (GLUCOPHAGE) 500MG TAB PO SCH ×2 (07:43→17:01)
--- NOTE | 2021-04-05 12:28 | MHIPNPDOC ---
[facility] Progress Note Progress Note DATE OF SERVICE: 04/05/21 HISTORY: Patient is a 40 -year-old , male, who was readmitted after coming back from [facility] who could not house him, as per the patient he did not have any legal papers . During my evaluation in the ER and on the unit patient seems to be severely depressed he feels hopeless and helpless. He reports "I do not see any exit". Patient was admitted to [facility] for attempting suicide by cutting his hand about a week ago. Though patient denies any suicidal thoughts he reports he is severely depressed, feels hopeless and also complains of anxiety. Patient also has possibility cannabis use disorder. Patient has multiple psychiatric hospitalizations has been diagnosed with depressive disorder and has history of multiple suicide attempts. Patient became noncompliant with his medication since a week. As per his statement he is on Abilify currently which helps him. ED report : Pt came back after discharge due to [facility] being unable to house him without his identification and proof of income. He reports these things are probably in his tent that he has set up in [place]. Pt reports "severe anxiety with tremors" and depression feeling hopeless. Pt denies current SI but reports a Hx of SI and attempts. Pt reports increased depression that he does not feel improved prior to discharge. Pt also stated he is suffering from anxiety with physical symptoms. Pt states he was sent to [facility] however does not have any of his identification or proof of income so they were unable to provide housing. Pt is unable to contract for safety or provide a safe discharge plan. Vitals: See below Lab Results: None MENTAL STATUS EXAMINATION: Patient is a 40year old male, who is morbidly obese admitted for suicidal ideations stemming from housing issues. Unkempt, poor hygiene and grooming. Fair eye contact Speech: Is normal rate, tone and volume Language skills are intact Thought processes including: linear and goal oriented Thought content: Reports decreased depression and anxiety. Denies suicidal/homicidal ideation, planning or intent currently. Abstract reasoning, and computation: fair Description of associations: denies, none observed Description of abnormal or psychotic thoughts: denies, none observed. Judgment: fair Insight: fair Orientation: alert and oriented to person, place, time and situation Recent and remote memory: intact Attention span and concentration: good Language: expansive Fund of knowledge: below average Mood: reports less depressed Affect: constricted DIAGNOSES: 1. Major depressive disorder 2. Intellectual Disability ASSESSMENT: Patient is improving, reports less depression and anxiety but states that if he were discharged today he would return. He is not having luck with finding housing. He wants to be discharged on Thursday to find his wallet and other documents to present to [facility] which will help him with getting custodial. MANAGEMENT PLAN: We will come out with his disposition plan after consulting social service. Discharge Thursday TIME SPENT: 25 minutes. Vital Signs Vital Signs Date Time Temp Pulse Resp B/P (MAP) Pulse Ox O2 Delivery O2 Flow Rate FiO2 04/05/21 07:42 72 118/72 04/05/21 07:11 97.0 20 100 Room Air Current Medications Current Medications Medications (Trade) Dose Ordered Sig/Louis Route PRN Reason Start Time Stop Time Status Last Admin Dose Admin Acetaminophen (Tylenol Tab) 650 mg Q6HP PRN PO HEADACHE or MILD DISCOMFORT 03/29/21 17:35 04/04/21 20:54 Al Hydrox/Mg Hydrox/Simethicone (Mylanta) 30 ml Q4HP PRN PO HEARTBURN/INDIGESTION 03/29/21 17:35 04/02/21 01:50 Amlodipine Besylate (Norvasc) 5 mg DAILY PO 03/30/21 09:00 04/05/21 07:42 Apixaban (Eliquis) 5 mg BID PO 03/30/21 09:00 04/05/21 07:43 Aripiprazole (AbiLIFY) 10 mg DAILY PO 03/30/21 09:00 04/03/21 11:37 DC 04/03/21 08:05 Aripiprazole (AbiLIFY) 10 mg QHS PO 04/04/21 21:00 04/04/21 20:53 Cetirizine HCl (ZyrTEC) 10 mg DAILY PO 03/30/21 09:00 04/03/21 11:37 DC 04/03/21 08:04 Cetirizine HCl (ZyrTEC) 10 mg QHS PO 04/04/21 21:00 04/04/21 20:53 Home Med (Home Med List Complete!) ASDIRECTED XX 03/29/21 15:25 03/29/21 15:24 DC Levothyroxine Sodium (Synthroid) 200 mcg DAILY@0600 PO 03/30/21 06:00 04/05/21 06:00 Lisinopril (Prinivil) 10 mg DAILY PO 03/30/21 09:00 04/05/21 07:42 Magnesium Hydroxide (Milk Of Magnesia) 30 ml DAILYPRN PRN PO CONSTIPATION 03/29/21 17:35 Magnesium Oxide (Mag-Ox) 400 mg BID PO 03/30/21 09:00 04/05/21 07:43 Metformin HCl (Glucophage) 500 mg BID@0800,1800 PO 03/30/21 08:00 04/05/21 07:43 Metoprolol Tartrate (Lopressor) 100 mg BID PO 03/30/21 09:00 04/05/21 07:42 Nicotine (Nicoderm Cq 14mg) 1 patch DAILY TOP 03/30/21 09:00 03/30/21 09:03 DC Nicotine (Nicoderm Cq 21mg) 1 patch DAILY TD 03/29/21 09:00 03/30/21 10:49 DC Omeprazole (PriLOSEC) 40 mg DAILY PO 03/30/21 09:00 04/05/21 07:42 Simethicone (Mylicon) 80 mg QID PRN PO GAS PAIN 03/30/21 08:40 Torsemide (Demadex) 20 mg BID@0900,1700 PO 03/30/21 09:00 04/05/21 07:41 Trazodone HCl (Desyrel) 50 mg QHSP PRN PO INSOMNIA 03/29/21 17:35 04/03/21 11:34 DC 04/02/21 20:49 Trazodone HCl (Desyrel) 100 mg QHS PRN PO INSOMNIA 03/30/21 08:40 04/04/21 20:53 Vitamin D (Vitamin D) 2,000 units DAILY PO 03/30/21 09:00 04/05/21 07:42 Allergies Coded Allergies: Penicillins (Verified Allergy, Unknown, hives, tongue swelling, 12/26/19) latex (Verified Allergy, Unknown, hives, 12/26/19) VICKY GAGE NP Apr 05, 2021 10:22
[2021-04-05 16:39] VITALS: BP 146/84
[2021-04-05] MEDS: traZODone 100 MG TAB PO PRN (20:40)
[2021-04-05] MEDS: ARIPiprazole 10 MG TAB PO SCH (20:40)
[2021-04-05] MEDS: CETIRIZINE (ZyrTEC) 10 MG TAB PO SCH (20:40)
[2021-04-05] MEDS: ACETAMINOPHEN TAB 650MG DOSE (2X325MG) PO PRN (20:40)
[2021-04-06] MEDS: LEVOTHYROXINE 100MCG TABLET (0.1MG) PO SCH (05:11)
[2021-04-06 06:40] VITALS: BP 105/58
[2021-04-06] MEDS: VITAMIN D 1,000 INTERNATIONAL UNITS TABLET PO SCH (08:27)
[2021-04-06] MEDS: METOPROLOL TART 50 MG TAB PO SCH ×2 (08:27→20:48)
[2021-04-06] MEDS: MAGNESIUM OXIDE 400MG TAB (MAG-OX) PO SCH ×2 (08:27→20:45)
[2021-04-06] MEDS: OMEPRAZOLE 20 MG CAP PO SCH (08:28)
[2021-04-06] MEDS: APIXABAN 5 MG TAB (ELIQUIS) PO SCH ×2 (08:28→20:46)
[2021-04-06] MEDS: amLODIPine 5 MG TAB PO SCH (08:28)
[2021-04-06] MEDS: metFORMIN (GLUCOPHAGE) 500MG TAB PO SCH ×2 (08:28→17:01)
[2021-04-06] MEDS: TORSEMIDE 20 MG TAB PO SCH ×2 (08:28→17:01)
[2021-04-06 16:23] VITALS: BP 154/90
[2021-04-06] MEDS: ACETAMINOPHEN TAB 650MG DOSE (2X325MG) PO PRN (17:00)
[2021-04-06] MEDS: ARIPiprazole 10 MG TAB PO SCH (20:45)
[2021-04-06] MEDS: CETIRIZINE (ZyrTEC) 10 MG TAB PO SCH (20:46)
[2021-04-07] MEDS: LEVOTHYROXINE 100MCG TABLET (0.1MG) PO SCH (05:36)
[2021-04-07 06:34] VITALS: BP 126/62
[2021-04-07] MEDS: APIXABAN 5 MG TAB (ELIQUIS) PO SCH ×2 (09:19→23:27)
[2021-04-07] MEDS: MAGNESIUM OXIDE 400MG TAB (MAG-OX) PO SCH ×2 (09:19→23:27)
[2021-04-07] MEDS: OMEPRAZOLE 20 MG CAP PO SCH (09:19)
[2021-04-07] MEDS: metFORMIN (GLUCOPHAGE) 500MG TAB PO SCH ×2 (09:19→17:02)
[2021-04-07] MEDS: TORSEMIDE 20 MG TAB PO SCH ×2 (09:19→17:02)
[2021-04-07] MEDS: METOPROLOL TART 50 MG TAB PO SCH ×2 (09:19→23:28)
[2021-04-07] MEDS: amLODIPine 5 MG TAB PO SCH (09:20)
[2021-04-07] MEDS: VITAMIN D 1,000 INTERNATIONAL UNITS TABLET PO SCH (09:20)
[2021-04-07 16:31] VITALS: BP 118/84
[2021-04-07] MEDS: CETIRIZINE (ZyrTEC) 10 MG TAB PO SCH (23:27)
[2021-04-07] MEDS: traZODone 100 MG TAB PO PRN (23:27)
[2021-04-07] MEDS: ARIPiprazole 10 MG TAB PO SCH (23:28)
[2021-04-07] MEDS: ACETAMINOPHEN TAB 650MG DOSE (2X325MG) PO PRN (23:31)
[2021-04-08] MEDS: LEVOTHYROXINE 100MCG TABLET (0.1MG) PO SCH (05:38)
[2021-04-08 06:31] VITALS: BP 127/86
[2021-04-08] MEDS: OMEPRAZOLE 20 MG CAP PO SCH (08:26)
[2021-04-08] MEDS: MAGNESIUM OXIDE 400MG TAB (MAG-OX) PO SCH ×2 (08:26→21:02)
[2021-04-08] MEDS: TORSEMIDE 20 MG TAB PO SCH ×2 (08:27→16:56)
[2021-04-08] MEDS: amLODIPine 5 MG TAB PO SCH (08:27)
[2021-04-08] MEDS: APIXABAN 5 MG TAB (ELIQUIS) PO SCH ×2 (08:27→21:02)
[2021-04-08] MEDS: metFORMIN (GLUCOPHAGE) 500MG TAB PO SCH ×2 (08:27→16:56)
[2021-04-08] MEDS: VITAMIN D 1,000 INTERNATIONAL UNITS TABLET PO SCH (08:28)
[2021-04-08] MEDS: METOPROLOL TART 50 MG TAB PO SCH ×2 (08:28→21:02)
--- NOTE | 2021-04-08 15:05 | MHIPNPDOC ---
[facility] Progress Note Progress Note DATE OF SERVICE: 04/08/21 HISTORY: Patient is a 40 -year-old , male, who was readmitted after coming back from [facility] who could not house him, as per the patient he did not have any legal papers . During my evaluation in the ER and on the unit patient seems to be severely depressed he feels hopeless and helpless. He reports "I do not see any exit". Patient was admitted to [facility] for attempting suicide by cutting his hand about a week ago. Though patient denies any suicidal thoughts he reports he is severely depressed, feels hopeless and also complains of anxiety. Patient also has possibility cannabis use disorder. Patient has multiple psychiatric hospitalizations has been diagnosed with depressive disorder and has history of multiple suicide attempts. Patient became noncompliant with his medication since a week. As per his statement he is on Abilify currently which helps him. ED report : Pt came back after discharge due to [facility] being unable to house him without his identification and proof of income. He reports these things are probably in his tent that he has set up in [place]. Pt reports "severe anxiety with tremors" and depression feeling hopeless. Pt denies current SI but reports a Hx of SI and attempts. Pt reports increased depression that he does not feel improved prior to discharge. Pt also stated he is suffering from anxiety with physical symptoms. Pt states he was sent to [facility] however does not have any of his identification or proof of income so they were unable to provide housing. Pt is unable to contract for safety or provide a safe discharge plan. Vitals: See below Lab Results: None Medications: See below Response to medications: Patient denies any side effects or adverse problems from medications. States that he is not severely depressed, anxious or suicidal. He is not requesting any changes of his medications. MENTAL STATUS EXAMINATION: Patient is a 40year old male, who is morbidly obese admitted for suicidal ideations stemming from housing issues. Unkempt, poor hygiene and grooming. Fair eye contact Speech: Is normal rate, tone and volume Language skills are intact Thought processes including: linear and goal oriented Thought content: Reports continued decreased depression and anxiety. Denies suicidal/homicidal ideation, planning or intent currently. Abstract reasoning, and computation: fair Description of associations: denies, none observed Description of abnormal or psychotic thoughts: denies, none observed. Judgment: fair Insight: fair Orientation: alert and oriented to person, place, time and situation Recent and remote memory: intact Attention span and concentration: good Language: expansive Fund of knowledge: below average Mood: reports less depressed Affect: constricted DIAGNOSES: 1. Major depressive disorder 2. Intellectual Disability ASSESSMENT: Patient's discharge is delayed as he does not have a safe discharge plan. Angelika vega is currently experiencing a housing problem. Has no ability to get an apartment as he does not have his wallet which is what he is needs to go to DSS for proof of expenses and income. Patient stated today that his brother did attempt to look for his wallet in the [place] but was unable to retrieve his belongings. Call to several DSS in the area including [facility]. Saida mota has an open case in this [facility] and was seen in [place] but did not complete his paperwork. At this time, patient denies suicidal ideation, planning or intent. His depression is minimal and anxiety is not severe. Patient to be discharged tomorrow to DSS where they will have to help resolve his housing problems. Patient is aware that he is being discharged tomorrow and verbalizes understanding that his continued hospitalization is not to solve his current housing problems. Patient is agreeable to the discharge tomorrow. MANAGEMENT PLAN: Discharge tomorrow. TIME SPENT: 25 minutes. Vital Signs Vital Signs Date Time Temp Pulse Resp B/P (MAP) Pulse Ox O2 Delivery O2 Flow Rate FiO2 04/08/21 08:28 50 127/86 04/08/21 06:31 97.5 18 93 Room Air Current Medications Current Medications Medications (Trade) Dose Ordered Sig/Louis Route PRN Reason Start Time Stop Time Status Last Admin Dose Admin Acetaminophen (Tylenol Tab) 650 mg Q6HP PRN PO HEADACHE or MILD DISCOMFORT 03/29/21 17:35 04/07/21 23:31 Al Hydrox/Mg Hydrox/Simethicone (Mylanta) 30 ml Q4HP PRN PO HEARTBURN/INDIGESTION 03/29/21 17:35 04/02/21 01:50 Amlodipine Besylate (Norvasc) 5 mg DAILY PO 03/30/21 09:00 04/08/21 08:27 Apixaban (Eliquis) 5 mg BID PO 03/30/21 09:00 04/08/21 08:27 Aripiprazole (AbiLIFY) 10 mg DAILY PO 03/30/21 09:00 04/03/21 11:37 DC 04/03/21 08:05 Aripiprazole (AbiLIFY) 10 mg QHS PO 04/04/21 21:00 04/07/21 23:28 Cetirizine HCl (ZyrTEC) 10 mg DAILY PO 03/30/21 09:00 04/03/21 11:37 DC 04/03/21 08:04 Cetirizine HCl (ZyrTEC) 10 mg QHS PO 04/04/21 21:00 04/07/21 23:27 Home Med (Home Med List Complete!) ASDIRECTED XX 03/29/21 15:25 03/29/21 15:24 DC Levothyroxine Sodium (Synthroid) 200 mcg DAILY@0600 PO 03/30/21 06:00 04/08/21 05:38 Lisinopril (Prinivil) 10 mg DAILY PO 03/30/21 09:00 04/08/21 08:27 Magnesium Hydroxide (Milk Of Magnesia) 30 ml DAILYPRN PRN PO CONSTIPATION 03/29/21 17:35 Magnesium Oxide (Mag-Ox) 400 mg BID PO 03/30/21 09:00 04/08/21 08:26 Metformin HCl (Glucophage) 500 mg BID@0800,1800 PO 03/30/21 08:00 04/08/21 08:27 Metoprolol Tartrate (Lopressor) 100 mg BID PO 03/30/21 09:00 04/08/21 08:28 Nicotine (Nicoderm Cq 14mg) 1 patch DAILY TOP 03/30/21 09:00 03/30/21 09:03 DC Nicotine (Nicoderm Cq 21mg) 1 patch DAILY TD 03/29/21 09:00 03/30/21 10:49 DC Omeprazole (PriLOSEC) 40 mg DAILY PO 03/30/21 09:00 04/08/21 08:26 Simethicone (Mylicon) 80 mg QID PRN PO GAS PAIN 03/30/21 08:40 Torsemide (Demadex) 20 mg BID@0900,1700 PO 03/30/21 09:00 04/08/21 08:27 Trazodone HCl (Desyrel) 50 mg QHSP PRN PO INSOMNIA 03/29/21 17:35 04/03/21 11:34 DC 04/02/21 20:49 Trazodone HCl (Desyrel) 100 mg QHS PRN PO INSOMNIA 03/30/21 08:40 04/07/21 23:27 Vitamin D (Vitamin D) 2,000 units DAILY PO 03/30/21 09:00 04/08/21 08:28 Allergies Coded Allergies: Penicillins (Verified Allergy, Unknown, hives, tongue swelling, 12/26/19) latex (Verified Allergy, Unknown, hives, 12/26/19) VICKY GAGE NP Apr 08, 2021 11:26
[2021-04-08 17:52] VITALS: BP 143/100
[2021-04-08] MEDS: ARIPiprazole 10 MG TAB PO SCH (21:02)
[2021-04-08] MEDS: CETIRIZINE (ZyrTEC) 10 MG TAB PO SCH (21:02)
[2021-04-09] MEDS: LEVOTHYROXINE 100MCG TABLET (0.1MG) PO SCH (06:01)
[2021-04-09 06:39] VITALS: BP 118/62
[2021-04-09] MEDS: metFORMIN (GLUCOPHAGE) 500MG TAB PO SCH (07:44)
[2021-04-09] MEDS: MAGNESIUM OXIDE 400MG TAB (MAG-OX) PO SCH (07:45)
[2021-04-09] MEDS: OMEPRAZOLE 20 MG CAP PO SCH (07:45)
[2021-04-09] MEDS: VITAMIN D 1,000 INTERNATIONAL UNITS TABLET PO SCH (07:45)
[2021-04-09] MEDS: APIXABAN 5 MG TAB (ELIQUIS) PO SCH (07:49)
[2021-04-09] MEDS: METOPROLOL TART 50 MG TAB PO SCH (07:49)
[2021-04-09 07:50] VITALS: BP 137/92
[2021-04-09] MEDS: amLODIPine 5 MG TAB PO SCH (07:50)
[2021-04-09] MEDS: TORSEMIDE 20 MG TAB PO SCH (07:50)
[2021-04-09] MEDS ORDERED: ABIL10TA9 PO ×2 (11:06→13:20)
[2021-04-09] MEDS ORDERED: LEVO100T5 PO (11:06)
[2021-04-09] MEDS ORDERED: CETI10TA4 PO (13:20)
[2021-04-09] MEDS ORDERED: AMLO1TAB24 PO (13:20)
[2021-04-09] MEDS ORDERED: METF-839 PO (13:20)
[2021-04-09] MEDS ORDERED: TORS20TA2 PO (13:20)
[2021-04-09] MEDS ORDERED: NICO14DI24 TOP (13:20)
[2021-04-09] MEDS ORDERED: LEVO200T4 PO (13:20)
[2021-04-09] MEDS ORDERED: D3 H10002 PO (13:20)
[2021-04-09] MEDS ORDERED: METO100T5 PO (13:20)
[2021-04-09] MEDS ORDERED: TRAZ-257 PO (13:20)
[2021-04-09] MEDS ORDERED: LISI10TA22 PO (13:20)
[2021-04-09] MEDS ORDERED: ELIQ5TAB PO (13:20)
[2021-04-09] MEDS ORDERED: OMEP40CA4 PO (13:20)
[2021-04-09] MEDS ORDERED: MAGN400T2 PO (13:20)
[2021-04-09] MEDS ORDERED: SIME80CH5 PO (13:20)
--- NOTE | 2021-04-09 15:49 | MHDSPDOC ---
[facility] Discharge Summary Discharge Summary DATE OF ADMISSION: Mar 29, 2021 at 17:34 DATE OF DISCHARGE: Apr 09, 2021 at 13:41 DISCHARGE DIAGNOSES: 1. Major depressive disorder 2. Intellectual Disability REASON FOR ADMISSION: Patient is a 40 -year-old , male, who was readmitted after coming back from [facility] who could not house him, as per the patient he did not have any legal papers . During my evaluation in the ER and on the unit patient seems to be severely depressed he feels hopeless and helpless. He reports "I do not see any exit". Patient was admitted to [facility] for attempting suicide by cutting his hand about a week ago. Though patient denies any suicidal thoughts he reports he is severely depressed, feels hopeless and also complains of anxiety. Patient also has possibility cannabis use disorder. Patient has multiple psychiatric hospitalizations has been diagnosed with depressive disorder and has history of multiple suicide attempts. Patient became noncompliant with his medication since a week. As per his statement he is on Abilify currently which helps him. ED report : Pt came back after discharge due to [facility] being unable to house him without his identification and proof of income. He reports these things are probably in his tent that he has set up in [place]. Pt reports "severe anxiety with tremors" and depression feeling hopeless. Pt denies current SI but reports a Hx of SI and attempts. Pt reports increased depression that he does not feel improved prior to discharge. Pt also stated he is suffering from anxiety with physical symptoms. Pt states he was sent to [facility] however does not have any of his identification or proof of income so they were unable to provide housing. Pt is unable to contract for safety or provide a safe discharge plan. VITAL SIGNS: See below. CONSULTANTS INVOLVED: See Medical H + P by Hospitalist TREATMENT AND PROGRESS ON THE UNIT: Patient was admitted to the [facility] on a 39 legal status was afforded the following treatment modalities: 1) Individual Therapy 2) Group Therapy 3) Medication Management 4) Milieu Therapy 5) Safe Environment HOSPITAL COURSE: Patient was admitted to [facility] on a 39 legal status. Patient was resumed on his home medications and he found medications beneficial and tolerated them well. Mood, anxiety, and intrusive thoughts improved with treatment. Pt attended limited groups during stay. Pts symptoms improved mi nimally with treatment. Patient was disheveled and unkempt most of his stay. Patient's stressors stem from poor housing, inability to prove to [facility] what he was spending his money and and therefore they would not help him with housing. Patient stated that he was sleeping in a tent at times. He was very much hoping that he would be given housing by the case planner. He was agreeable to returning to [facility] for housing, which was his only recourse. Much of his delay was on day of discharge was his inability to retrieve his wallet. He had asked his brother to look for it but he was unsuccessful. Pt. denied depression, anxiety, insomnia, SI/HI, hallucinations, delusions. Pt was discharged home with follow- up at [facility]. Pt felt safe for discharge. DISCHARGE ASSESSMENT: In today's interview, patient is alert and oriented, pt.s dress is appropriate. Hygiene and grooming is well-kempt. Smiles on approach and is pleasant and engaged in the interview. Denies depression and anxiety. Denies suicidal and homicidal ideation, planning or intent. Denies and is not observed with gabrielle, psychotic symptoms of delusions, bizarre thinking, obsessions, paranoia, ruminations illogical thoughts, flight of ideas or having poor insight and judgement. Reinforced with patient need to abstain from alcohol and drugs. At discharge patient has normal mentation, declines further hospitalization on a voluntary status and meets criteria for discharge today. Discussed indications of medications, potential benefits and risks, alternatives (including no treatment) and questions were encouraged and answered. Patient encouraged to return to hospital if symptoms worsen or change and encouraged to call unit if he/she/they needs to speak to provider for questions regarding medications or care. MENTAL STATUS EXAMINATION ON DISCHARGE: Patient is a 40 -year-old , male, who was readmitted after coming back from [facility] who could not house him, as per the patient he did not have any legal papers . During my evaluation in the ER and on the unit patient seems to be severely depressed he feels hopeless and helpless. Speech: Is fluid, conversant, normal rate, tone and volume Language skills are intact Thought processes including: linear and goal oriented Thought content: denies depression and anxiety. Denies suicidal/homicidal ideation, planning or intent. Abstract reasoning, and computation: fair Description of associations: denies, none observed Description of abnormal or psychotic thoughts: denies, none observed. Judgment: fair Insight: fair Orientation: alert and oriented to person, place, time and situation Recent and remote memory: intact Attention span and concentration: good Language: expansive Fund of knowledge: average Mood: Euthymic Mood Affect: reactive Suicide Risk Assessment: 1) Does the patient wish to be ? No 2) Since your admission, have you had any actual thought of killing yourself? No 3) Since your admission, have you been thinking about how you might do this? No 4) Since your admission, have you had these thoughts and had some intention of acting on them? No 5) Since your admission, have you started to work out or worked out the details of how to kill yourself? No 5A) Do you intent to carry out this plan? No and NA 6) Have you ever done anything, started anything, or prepared to do anything with any intent to ? No 6A) How long since your admission did you do any of these? NA MEDICATIONS ON DISCHARGE: See Medication Reconciliation RESPONSE TO MEDICATIONS: Patient tolerated medications well reported no side effects or adverse problem. MEDICATION TEACHING: Patient had some difficulty with understanding his medications, but reports that he was stable on all of his current medications ILLNESS EDUCATION: Encourage patient to continue taking all medication as prescribed, to go to all of his outpatient mental health appointments and follow -up with case management if he was agreeable. PLAN/FOLLOWUP ARRANGEMENTS: Patient discharged to [facility] and he will follow up at [facility] Mental Health Appt 1 * Mental Health [facility] MENTAL HEALTH WELLNESS * Established With This Provider Yes * Therapist SUMIT * Date Apr 12, 2021 * Time 10:00 * Address of Clinic or Practice [address] [place] [address] * Follow Up Care Education Label * Medical * Medical Follow Up [facility] * Established With This Provider Yes * Therapist ELINA * Date Apr 16, 2021 * Time 09:30 * Address of Clinic or Practice [address] [place] [address] * * Additional information THIS APPOINTMENT IS AT THE [facility] OFFICE. [facility] The amount of time spent in the coordination of care for this patient was approximately 25 minutes. ETOH/Disorder Med Rx ETOH/DRUG DISORDER RX: N/A Vital Signs/I&Os Vital Signs Date Time Temp Pulse Resp B/P (MAP) Pulse Ox O2 Delivery O2 Flow Rate FiO2 04/09/21 07:50 137/92 04/09/21 07:50 98 04/09/21 06:39 98.0 20 95 Room Air Medications Scheduled Amlodipine Besylate (Amlodipine Besylate) 5 Mg Tablet, 5 MG PO DAILY, (Reported) Amlodipine Besylate (Amlodipine Besylate) 5 Mg Tablet, 5 MG PO DAILY for Blood Pressure for 7 Days, #7 Apixaban (Eliquis) 5 Mg Tablet, 5 MG PO BID, (Reported) Apixaban (Eliquis) 5 Mg Tablet, 5 MG PO BID for Anticoagulant for 30 Days, #14 Aripiprazole (Abilify) 10 Mg Tablet, 10 TAB PO DAILY for mood for 7 Days, #7 Aripiprazole (Abilify) 10 Mg Tablet, 10 MG PO QHS for Psychosis, #7 Cetirizine HCl (Cetirizine HCl) 10 Mg Tablet, 10 MG PO DAILY, (Reported) Cetirizine HCl (Cetirizine HCl) 10 Mg Tablet, 1 TAB PO DAILY for allergy symptoms, #7 Cholecalciferol (Vitamin D3) (Vitamin D3) 25 Mcg Tablet, 50 MCG PO DAILY, (Reported) Cholecalciferol (Vitamin D3) (Vitamin D3) 25 Mcg Capsule, 25 MCG PO DAILY for vitamin, #7 Levothyroxine Sodium (Levothyroxine Sodium) 100 Mcg Tablet, 200 MCG PO DAILY for thyroid, #7 Levothyroxine Sodium (Levothyroxine Sodium) 200 Mcg Tablet, 200 MCG PO DAILY for thyroid, #7 Lisinopril (Lisinopril) 10 Mg Tablet, 10 MG PO DAILY, (Reported) Lisinopril (Lisinopril) 10 Mg Tablet, 10 MG PO DAILY for Blood Pressure, #7 Magnesium Oxide (Magnesium Oxide) 400 Mg Tablet, 400 MG PO BID, (Reported) Magnesium Oxide (Magnesium Oxide) 400 Mg Tablet, 400 MG PO BID for constipation, #14 Metformin HCl (Metformin HCl) 500 Mg Tablet, 500 MG PO BID, (Reported) Metformin HCl (Metformin HCl) 500 Mg Tablet, 500 MG PO BID for Diabetes , #14 Metoprolol Tartrate (Metoprolol Tartrate) 50 Mg Tablet, 100 MG PO BID, (Reported) Metoprolol Tartrate (Metoprolol Tartrate) 100 Mg Tablet, 100 MG PO BID for Blood Pressure, #14 Nicotine (Nicotine Patch) 14 Mg Patch.td24, 1 PATCH TOP DAILY for smoking cessation for 28 Days, #28 Nicotine (Nicotine Patch) 14 Mg Patch.td24, 1 PATCH TOP DAILY for smoking cessation, #7 Omeprazole (Omeprazole) 20 Mg Capsule.dr, 40 MG PO DAILY, (Reported) Omeprazole (Omeprazole) 40 Mg Capsule.dr, 40 MG PO DAILY for acid reflux, #7 Simethicone (Simethicone) 80 Mg Tab.chew, 80 MG PO QID for gas for 7 Days, #28 Torsemide (Torsemide) 20 Mg Tablet, 20 MG PO BID, (Reported) Torsemide (Torsemide) 20 Mg Tablet, 20 MG PO BID for fluid retention, #14 Trazodone HCl (Trazodone HCl) 100 Mg Tablet, 100 MG PO QHS for insomnia, #7 Scheduled PRN Melatonin (Melatonin) 10 Mg Capsule, 20 MG PO QHS PRN for INSOMNIA, (Reported) Nicotine Polacrilex (Nicotine Lozenge) 4 Mg Lozenge, 4 MG MT Q4H PRN for SMOKING CESSATION, (Reported) Simethicone (Simethicone) 80 Mg Tab.chew, 80 MG PO QID PRN for GAS PAIN, (Reported) Trazodone HCl (Trazodone HCl) 100 Mg Tablet, 100 MG PO QHS PRN for INSOMNIA, (Reported) Allergies Coded Allergies: Penicillins (Verified Allergy, Unknown, hives, tongue swelling, 12/26/19) latex (Verified Allergy, Unknown, hives, 12/26/19) VICKY GAGE NP Apr 09, 2021 15:49
== END 2021-04-09 13:41 | disposition home or self-care (01) | DRG 754 ==
LOC: M ED 14:18 → M ED INP 17:34 → M PSY 18:53
PROVIDERS: ADMIT Psychiatry & Neurology Psychiatry; ATTEND Psychiatry & Neurology Psychiatry
DX: F32.9 Major depressive disorder, single episode, unspecified (principal); Z68.44 Body mass index [BMI] 60.0-69.9, adult; I10 Essential (primary) hypertension; F79 Unspecified intellectual disabilities; I48.91 Unspecified atrial fibrillation; E66.01 Morbid (severe) obesity due to excess calories; E11.9 Type 2 diabetes mellitus without complications; Z79.899 Other long term (current) drug therapy; Z88.0 Allergy status to penicillin; Z91.040 Latex allergy status; Z87.891 Personal history of nicotine dependence; Z59.00 Homelessness unspecified; G47.33 Obstructive sleep apnea (adult) (pediatric); F12.90 Cannabis use, unspecified, uncomplicated; K21.9 Gastro-esophageal reflux disease without esophagitis